=== PATIENT | male | born 1970 | race Caucasian/White ===

== ENCOUNTER 2019-12-06 09:22 | Outpatient (REF) | payer OTHER, SELFPAY | END 2019-12-06 09:23 | disposition home or self-care (01) | LOC: HO.LNP 09:22 | PROVIDERS: PCP Internal Medicine; Visit Provider Surgery | DX: R22.40 Localized swelling, mass and lump, unspecified lower limb (principal); L72.9 Follicular cyst of the skin and subcutaneous tissue, unspecified | CPT/HCPCS: 11402 ==

== ENCOUNTER 2019-12-06 16:11 | Outpatient (REF) | payer OTHER, SELFPAY | END 2019-12-06 16:12 | disposition home or self-care (01) | LOC: HO.LAB 16:11 | PROVIDERS: Visit Provider Surgery | DX: L72.9 Follicular cyst of the skin and subcutaneous tissue, unspecified (principal) | CPT/HCPCS: 88304 ==

== ENCOUNTER → 2019-12-14 14:29 | Outpatient (BNVA) | payer OTHER, SELFPAY | PROVIDERS: PCP Internal Medicine; Referring Provider Internal Medicine; Visit Provider Internal Medicine Cardiovascular Disease | DX: I25.10 Atherosclerotic heart disease of native coronary artery without angina pectoris (principal); I10 Essential (primary) hypertension; E78.2 Mixed hyperlipidemia; Z79.82 Long term (current) use of aspirin; Z79.899 Other long term (current) drug therapy | CPT/HCPCS: 93005 ==

== ENCOUNTER → 2019-12-20 09:43 | Outpatient (BNVA) | payer OTHER, SELFPAY | PROVIDERS: PCP Internal Medicine; Visit Provider Surgery | DX: Z76.89 Persons encountering health services in other specified circumstances (principal) ==

== ENCOUNTER 2020-02-07 08:58 | Outpatient (REF) | payer OTHER, SELFPAY ==
[2020-02-07 09:20] LABS: COVID-19 Test Negative (Negative)
== END 2020-02-07 08:59 | disposition home or self-care (01) ==
LOC: HO.EMPCOV 08:58
PROVIDERS: PCP Internal Medicine; Visit Provider Internal Medicine
DX: Z20.828 Contact with and (suspected) exposure to other viral communicable diseases (principal)
CPT/HCPCS: 87635; C9803

== ENCOUNTER 2020-02-29 13:16 | Outpatient (REF) | payer OTHER, SELFPAY ==
--- NOTE | 2020-02-29 13:22 | XR_ITS ---
EXAMINATION: XR HAND, RIGHT CLINICAL INFORMATION: Injury of right hand COMPARISON: None TECHNIQUE: PA, lateral, and oblique views of the right hand. FINDINGS: There is no evidence of acute fracture or dislocation of the right hand. No radiopaque foreign bodies identified. Joint spaces are maintained. Soft tissue prominence is seen involving the base of the thumb and palm. XR/XR hand RT min 3V IMPRESSION: No bony abnormality of the right hand identified. Prominent soft tissue swelling.
== END 2020-02-29 13:17 | disposition home or self-care (01) ==
LOC: HO.HMGCX 13:16
PROVIDERS: PCP Internal Medicine; Visit Provider Nurse Practitioner Family
DX: S69.90XA Unspecified injury of unspecified wrist, hand and finger(s), initial encounter (principal); X58.XXXA Exposure to other specified factors, initial encounter; Y93.9 Activity, unspecified; Y92.9 Unspecified place or not applicable; Y99.9 Unspecified external cause status
CPT/HCPCS: 73130

== ENCOUNTER → 2020-03-07 11:32 | Outpatient (BNVA) | payer BC, SELFPAY | PROVIDERS: PCP Internal Medicine; Visit Provider Surgery ==

== ENCOUNTER 2020-10-30 07:18 | Outpatient (REF) | payer OTHER, SELFPAY ==
[2020-10-30 08:17] LABS: MANUAL DIFF FLAG NO
[2020-10-30 08:34] LABS: Basophils Percent Auto 0.6 % (0-2); Eosinophils Absolute Auto 0.2 X10*3/uL (0.0-0.4); Eosinophils Percent Auto 2.9 % (0-4); Hematocrit 42.9 % (42-52); Hemoglobin 14.4 g/dl (14.0-18.0); Imm Gran Abs Auto 0.03 X10*3/uL (0.00-0.03); Imm Gran Pct Auto 0.6 % (0.0-0.4); Lymphocytes Absolute Auto 1.5 X10*3/uL (1.2-4.9); Lymphocytes Percent Auto 29.4 % (20-40); Mean Corpuscular HGB Conc 33.6 g/dl (31.0-36.0); Mean Corpuscular Volume 98.4 fL (80-98); Mean Platelet Volume 10.5 fL (9.4-12.4); Monocytes Absolute Auto 0.5 X10*3/uL (0.1-1.2); Monocytes Percent Auto 10.2 % (2-11); Neutrophils Absolute Auto 2.9 X10*3/uL (2.0-8.3); Neutrophils Percent Auto 56.3 % (45-73); Platelet Count 239 X10*3/uL (160-400); Red Blood Count 4.36 X10*6/uL (4.60-5.80); Red Cell Distribution Width 13.2 % (11.0-16.0); White Blood Count 5.2 X10*3/uL (4.8-10.8)
[2020-10-30 09:07] LABS: Estimated Average Glucose 114 mg/dL; Hemoglobin A1c % 5.6 %
[2020-10-30 09:29] LABS: Folate 9.8 ng/mL (> or = 4.0); Vitamin B12 233 pg/mL (200-900)
[2020-10-30 18:50] LABS: Alanine Aminotransferase 32 U/L (0-40); Albumin Level 4.7 g/dL (3.5-5.0); Alkaline Phosphatase 62 U/L (39-117); Anion Gap 12 (12-20); Aspartate Amino Transferase 32 U/L (5-37); Bilirubin Total 0.5 mg/dL (0.0-1.0); Blood Urea Nitrogen 11 mg/dL (9-16); Calcium 9.6 mg/dL (8.4-10.2); Carbon Dioxide 26 mmol/L (22-29); Chloride 109 mmol/L (96-108); Cholesterol 178 mg/dL; Estimated Glomerular Filt Rate > 60; Glucose Random 115 mg/dL (60-115); HDL Cholesterol 31 mg/dL; LDL Cholesterol Calculated 101 mg/dl; Potassium 4.4 mmol/L (3.3-5.1); Sodium 143 mmol/L (135-145); Total Protein 7.1 g/dL (6.5-8.0); Triglycerides 230 mg/dL; Uric Acid 3.3 mg/dL (3.4-7.0)
[2020-10-30 19:12] LABS: Free T4 (Free Thyroxine) 0.83 ng/dL (0.71-1.85); Prostate Specific Antigen Scr 1.82 ng/mL (<0.05-4.0); Thyroid Stimulating Hormone 2.04 uIU/mL (0.32-4.0)
== END 2020-10-30 07:19 | disposition home or self-care (01) ==
LOC: HO.LAB 07:18
PROVIDERS: PCP Internal Medicine; Visit Provider Internal Medicine
DX: I25.10 Atherosclerotic heart disease of native coronary artery without angina pectoris (principal); E78.00 Pure hypercholesterolemia, unspecified; R73.02 Impaired glucose tolerance (oral); E78.2 Mixed hyperlipidemia; Z12.5 Encounter for screening for malignant neoplasm of prostate
CPT/HCPCS: 36415; 80053; 80061; 82607; 82746; 83036; 84153; 84439; 84443; 84550; 85025

== ENCOUNTER → 2021-03-04 12:55 | Outpatient (BNVA) | payer OTHER, SELFPAY | PROVIDERS: PCP Internal Medicine; Referring Provider Internal Medicine; Visit Provider Nurse Practitioner Family ==

== ENCOUNTER 2021-03-21 09:41 | Outpatient (REF) | payer OTHER, SELFPAY ==
[2021-03-21 11:05] LABS: Alanine Aminotransferase 39 U/L (0-40); Albumin Level 4.6 g/dL (3.5-5.0); Alkaline Phosphatase 61 U/L (39-117); Anion Gap 13 (12-20); Aspartate Amino Transferase 41 U/L (5-37); Bilirubin Total 0.7 mg/dL (0.0-1.0); Blood Urea Nitrogen 14 mg/dL (9-16); Calcium 9.6 mg/dL (8.4-10.2); Carbon Dioxide 24 mmol/L (22-29); Chloride 108 mmol/L (96-108); Cholesterol 114 mg/dL; Estimated Glomerular Filt Rate > 60; Glucose Random 103 mg/dL (60-115); HDL Cholesterol 18 mg/dL; LDL Cholesterol Calculated 66 mg/dl; Potassium 4.5 mmol/L (3.3-5.1); Sodium 140 mmol/L (135-145); Total Protein 7.1 g/dL (6.5-8.0); Triglycerides 154 mg/dL
== END 2021-03-21 09:42 | disposition home or self-care (01) ==
LOC: HO.LAB 09:41
PROVIDERS: PCP Internal Medicine; Visit Provider Internal Medicine
DX: I25.10 Atherosclerotic heart disease of native coronary artery without angina pectoris (principal); E78.00 Pure hypercholesterolemia, unspecified
CPT/HCPCS: 36415; 80053; 80061

== ENCOUNTER → 2021-03-26 11:03 | Outpatient (BNVA) | payer OTHER, SELFPAY | PROVIDERS: PCP Internal Medicine; Referring Provider Internal Medicine; Visit Provider Internal Medicine Cardiovascular Disease | DX: I25.10 Atherosclerotic heart disease of native coronary artery without angina pectoris (principal); I10 Essential (primary) hypertension | CPT/HCPCS: 93005 ==

== ENCOUNTER 2021-04-04 07:57 | Day surgery (SDC) | payer OTHER, SELFPAY ==
[2021-03-31 11:14] VITALS: BMI 28.5
--- NOTE | 2021-04-03 10:02 | HO.ANESPROP2 ---
Documented by User: Jannette Morales NP 04/25/21 14:48 HPI - Anesthesia Eval Consult details Narrative: 50yo M for Colonoscopy Cardiac optimized [facility] Active Problems Active Problems: All Active Problems (Updated 03/26/21 @ 11:41 by Bill Gerardo MD) Generalized anxiety disorder (Acute) Colon cancer screening (Acute) Annual physical exam (Acute) Impaired glucose tolerance (Acute) Tobacco abuse (Acute) GERD (gastroesophageal reflux disease) (Acute) Overweight (BMI 25.0-29.9) (Acute) Epidermal inclusion cyst (Acute) Hand injury (Acute) CAD (coronary artery disease) (Acute) HTN (hypertension), benign (Acute) Hyperlipidemia (Acute) Past Medical History Medical History (Updated 04/18/21 @ 09:03 by Daniela Cardoza [facility]) Alcohol abuse Anxiety CAD (coronary artery disease) COVID-19 virus infection Epidermal inclusion cyst Erectile dysfunction GERD (gastroesophageal reflux disease) HTN (hypertension), benign Hyperlipidemia Impaired glucose tolerance Internal hemorrhoids without complication Overweight (BMI 25.0-29.9) Polysubstance abuse Tobacco abuse Tubular adenoma Vitamin B12 deficiency Vitamin D deficiency Family History Family History Mother Myocardial infarct Father Myocardial infarct Surgical History Surgical History History of adenoidectomy History of coronary artery stent placement History of nasal surgery History of removal of cyst Hx of colonoscopy Social History Social History Housing: House Alcohol intake: current Alcohol intake frequency: 0-2 drinks per day Patient Tobacco Use Status: Current everyday Tobacco user Tobacco use type: Cigarette Cigarettes Per Day: 10 Years Smoked: 30 e-Cigarette/Vaping Use: Never Used Second Hand Smoke Exposure: No service: No Current occupational status: employed Meds Allergies Allergy/AdvReac Type Severity Reaction Status Date / Time No Known Allergies [NKA] Allergy Unknown NOT Verified 04/18/21 08:00 APPLICABLE Home Medications Medication Instructions Recorded Confirmed Last Taken Type aspirin 81 mg tablet,delayed 81 mg PO DAILY 12/14/19 04/04/21 04/02/21 History release (Adult Low Dose Aspirin) Exam Exam Date and Time: April 03, 2021 1002 Height,Weight and Vital Signs: Height 5 ft 8 in Weight 85 kg Pertinent Lab Results Pertinent Lab Results: Laboratory Tests 10/30/20 03/21/21 07:45 09:50 WBC 5.2 Hgb 14.4 Hct 42.9 Plt Count 239 Sodium 140 Potassium 4.5 Chloride 108 Carbon Dioxide 24 BUN 14 Creatinine 0.87 Narrative Narrative: EKG 03/2021 normal sinus rhythm with normal EKG at 77 beats per minute Assessment and Plan Assessment Anesthesia Assessment: Chart Reviewed Documented by User: Yg Dalal MD 05/28/21 00:27 HPI - Anesthesia Eval Consult details Narrative: 50yo M for Colonoscopy STEMI 2008 , s/p stent placement . Cardiac optimized as per Cards [facility] Past Medical History Medical History (Updated 04/18/21 @ 09:03 by [facility] Alcohol abuse Anxiety CAD (coronary artery disease) COVID-19 virus infection Epidermal inclusion cyst Erectile dysfunction GERD (gastroesophageal reflux disease) HTN (hypertension), benign Hyperlipidemia Impaired glucose tolerance Internal hemorrhoids without complication Overweight (BMI 25.0-29.9) Polysubstance abuse Tobacco abuse Tubular adenoma Vitamin B12 deficiency Vitamin D deficiency Family History Family History Mother Myocardial infarct Father Myocardial infarct Family history of problems with anesthesia: No Surgical History Surgical History History of adenoidectomy History of coronary artery stent placement History of nasal surgery History of removal of cyst Hx of colonoscopy History of Problems with Anesthesia: No Social History Social History Housing: House Alcohol intake: current Alcohol intake frequency: 0-2 drinks per day Patient Tobacco Use Status: Current everyday Tobacco user Tobacco use type: Cigarette Cigarettes Per Day: 10 Years Smoked: 30 e-Cigarette/Vaping Use: Never Used Second Hand Smoke Exposure: No service: No Current occupational status: employed Meds Allergies Allergy/AdvReac Type Severity Reaction Status Date / Time No Known Allergies [NKA] Allergy Unknown NOT Verified 04/18/21 08:00 APPLICABLE Home Medications Medication Instructions Recorded Confirmed Last Taken Type aspirin 81 mg tablet,delayed 81 mg PO DAILY 12/14/19 04/04/21 04/02/21 History release (Adult Low Dose Aspirin) Exam Airway Loose/Missing/Broken Teeth: Yes (Caps , fillings ) Heart: rrr Lungs: bl breath sounds Assessment and Plan Assessment Anesthesia Assessment: Anesthesia Plan Discussed Final Anesthetic Review Family History of Problems with Anesthesia: No History of Problems with Anesthesia: No NPO: Yes ASA Class: III Final Preanesthetic Review: Meds/Allgs Chart Reviewed, Consent Obtained/Reviewed and Anes Risks/Benef Reviewed Patient Risk: High Procedure Risk: Intermediate Anesthetic Plan Anesthetic Plan: MAC: Disposition: Standard PACU
[2021-04-04 08:19] VITALS: BMI 28.5
[2021-04-04 08:28] VITALS: BP 152/94; PULSE 78; RESP 16; TEMP 37.1; O2SAT 96
[2021-04-04] MEDS: Lactated Ringers 1,000 ML 100 ML IVCONT (08:37)
--- NOTE | 2021-04-04 08:56 | MHC.SHP ---
Pre-Procedural Eval Section A Date of Service: 04/04/21 The patient is an INPATIENT: No The History & Physical has been completed within 30 days and I have reviewed it.: No Section B Chief Complaint: screening Relevant Family History (Specify if Yes): Yes Relevant Social History: Tobacco Use Present Medications: see Short Stay Collaborative assessment Medical History: Significant History (Alcohol abuse Anxiety CAD (coronary artery disease) COVID-19 virus infection Epidermal inclusion cyst Erectile dysfunction GERD (gastroesophageal reflux disease) HTN (hypertension), benign Hyperlipidemia Impaired glucose tolerance Overweight (BMI 25.0-29.9) Polysubstance abuse Tobacco abuse Vitamin ) History of Previous Operations: Relevant previous surgery/procedure and date(s) (History of adenoidectomy History of coronary artery stent placement History of nasal surgery History of removal of cyst) Allergies: Allergies Allergy/AdvReac Type Severity Reaction Status Date / Time No Known Allergies [NKA] Allergy Unknown NOT Verified 04/04/21 08:30 APPLICABLE Review of Systems Sugical H&P ROS: Negative: Constitution, Cardiovascular, Respiratory and Gastrointestinal Exam Surgical H&P Exam: Normal: Heart, Normal: Lungs, Normal: Extremities and Normal: Abdomen Plan Diagnosis/Plan: Unchanged I have reviewed the history and physical and performed a pertinent physical examination on my patient. No changes have occurred unless specified.
--- NOTE | 2021-04-04 08:58 | P.OP_ITS ---
Operative Note Operative Note Date of Service: 04/04/21 Narrative: Pre-op diagnosis: Colon cancer screening, FH of colon polyps (brother in his 40's) Post-op diagnosis:?other (Colon polyps, hemorrhoids) Procedure: COLONOSCOPY TILL CECUM WITH BIOPSIES AND SNARE POLYPECTOMY Consent: Indications for the procedure and potential complications of bleeding, perforation, reaction to medications and missed diagnosis were discussed with the patient and informed consent was obtained. Instrument: Olympus PCF H 190 L variable stiffness pediatric colonoscope Monitoring: Vital signs and clinical assessment, intermittent blood pressure monitoring, continuous EKG monitoring, Pulse oximetry and Carbon Dioxide monitoring were done throughout the procedure. Colon withdrawl time was 45 minutes. Procedure: The patient was placed in the left lateral decubitis position and pre-procedure medications were administered. After a digital rectal examination of the ano-rectum, the video colonoscope was inserted into the rectum and advanced through the colon to the cecum. The colonoscope was slowly withdrawn in a retrograde panoramic fashion and the colon mucosa was carefully examined including a retroflexed view of the rectum. Findings and interventions are described below. Procedure Difficulty:? Colon was long and tortuous and there was spasm and loop formation. Patient was placed in the supine position to intubate the cecum to snare the cecal polyp Findings: Terminal Ileum: Not evaluated Cecum:? A 2.5 to 3 cms polyp in the cecum behind a fold - polyp was difficult to snare due to excessive spasm. Polyp was removed piece meal. Ascending Colon:? Normal Transverse Colon:? An 8-9 mm sessile polyp removed with a hot snare. Descending Colon:? Normal Sigmoid Colon:? Two 8-10 mm sessile polyps removed with a hot snare. A 4-5 mm sessile polyp removed with a cold bx. Rectum:? Normal Ano-rectum:? Moderate internal hemorrhoids Colon preparation:? Good after some irrigation Impression and Post Procedure Diagnosis: Colonoscopy Findings: Fout medium sized and one large polyps removed Moderate hemorrhoids on retroflexed exam. Plan: Await pathology results Patient has an appointment on 04/18/21 in the GI Clinic with Daniela Cardoza FNP- BC. Repeat Colonoscopy interval based on path results - in 6 to 12 months to check polypectomy site in the cecum (adult colonoscopy for future colonoscopies) Above findings were reviewed with the patient and colon polyps handout was given in the discharge area Surgeon: Todd Phoenix MD Anesthesia:?MAC (Do Dawkins CRNA) Was an Global Logistics Manager used for this Procedure?:?No Global Logistics Manager:?Jessica Bryant Estimated blood loss (mL):?0 Pathology:?other ( A. cecal polyp? B. transverse colon polyp? C. sigmoid polyps (2)) Condition:?stable Disposition:?PACU
[2021-04-04 10:03] VITALS: BP 115/79; PULSE 65; RESP 16; TEMP 36.9; O2SAT 99
[2021-04-04 10:18] VITALS: BP 139/80; PULSE 67; RESP 18; TEMP 36.9; O2SAT 96
== END 2021-04-04 10:44 | disposition home or self-care (01) ==
PROVIDERS: PCP Internal Medicine; Visit Provider Internal Medicine Gastroenterology
PROC: 0DJD8ZZ Inspection of Lower Intestinal Tract, Via Natural or Artificial Opening Endoscopic (ICD-10-PCS; CPT 45378; principal; 2021-04-04 09:00)
DX: Z12.11 Encounter for screening for malignant neoplasm of colon (principal); D12.0 Benign neoplasm of cecum; D12.3 Benign neoplasm of transverse colon; K63.5 Polyp of colon; K64.8 Other hemorrhoids; I25.10 Atherosclerotic heart disease of native coronary artery without angina pectoris; I25.2 Old myocardial infarction; Z98.61 Coronary angioplasty status; I10 Essential (primary) hypertension; R73.02 Impaired glucose tolerance (oral); E78.5 Hyperlipidemia, unspecified; E55.9 Vitamin D deficiency, unspecified; K21.9 Gastro-esophageal reflux disease without esophagitis; F19.10 Other psychoactive substance abuse, uncomplicated; F10.10 Alcohol abuse, uncomplicated; F17.200 Nicotine dependence, unspecified, uncomplicated; Z79.82 Long term (current) use of aspirin; Z79.899 Other long term (current) drug therapy; Z86.16 Personal history of COVID-19
CPT/HCPCS: 45385; 45380; 88305; J1610

== ENCOUNTER → 2021-04-18 07:57 | Outpatient (BNVA) | payer OTHER, SELFPAY | PROVIDERS: PCP Internal Medicine; Referring Provider Internal Medicine; Visit Provider Nurse Practitioner Family ==

== ENCOUNTER 2022-02-04 05:55 | Emergency (ER) | payer OTHER, SELFPAY ==
--- NOTE | ~2022-02-04 | XR_ITS ---
EXAMINATION: XR CHEST CLINICAL INFORMATION: Chest wall pain. Cough COMPARISON: March 2017 TECHNIQUE: 2 views of the chest were obtained. FINDINGS: No significant abnormality is noted involving the heart, lungs, mediastinum, bony thorax or soft tissues. XR/XR chest 2V IMPRESSION: No acute disease.
[2022-02-04 06:12] VITALS: BP 125/86; PULSE 72; RESP 16; TEMP 36.7; O2SAT 98; BMI 28.1
--- NOTE | 2022-02-04 07:33 | ED.GENADULT ---
HPI - General Adult General Chief complaint: General Medical Stated complaint: ear pain headache sore throat rib pain Time Seen by Provider: 02/04/22 07:24 Source: patient Mode of arrival: ambulatory History of Present Illness HPI narrative: 51-year-old male with history of high blood pressure in the hyperlipidemia presents with complaints of bilateral ear pain as well as persistent cough, malaise/body aches, sore throat, fevers that started last Wednesday and ?have not really improved?. Patient denies any use of Q-tips his physician did start him on antibiotic ear drops and he states that they have not worked. Related Data Home Medications Medication Instructions Recorded Confirmed aspirin 81 mg tablet,delayed 81 mg PO DAILY 12/14/19 12/31/21 release (Adult Low Dose Aspirin) Previous Rx's Medication Instructions Recorded hydrocortisone 2.5 % topical cream 1 appl [place] BID-QID PRN hemorrhoids 04/18/21 with perineal applicator #30 grams (Proctosol HC) rosuvastatin 40 mg tablet 40 mg PO DAILY 90 days #90 tabs 05/05/21 fenofibrate nanocrystallized 145 145 mg PO DAILY #90 tabs 07/31/21 mg tablet ezetimibe 10 mg tablet 10 mg PO DAILY #90 tabs 08/05/21 bisacodyl 5 mg tablet,delayed 10 mg PO ONCE 1 day #2 tabs 10/31/21 release (Dulcolax (bisacodyl)) polyethylene glycol 3350 17 238 g PO ONCE #238 grams 10/31/21 gram/dose oral powder (Miralax) famotidine 40 mg tablet 40 mg PO BEDTIME #90 tabs 11/26/21 sildenafil 100 mg tablet 100 mg PO DAILY PRN sexual 11/26/21 activity 10 days #10 tabs alprazolam 0.25 mg tablet 0.25 mg PO DAILY PRN anxiety #14 12/31/21 tabs bupropion HCl (smoking deter) 150 150 mg PO BID #60 tabs 12/31/21 mg tablet,12 hr sustained-release(smoking deterrent) nebivolol 5 mg tablet 5 mg PO DAILY #90 tabs 01/14/22 rsjlojxr-kmtlsfidf-lxdpxelif 3.5 4 drp otic (ears) Q8H 10 days #10 01/27/22 mg-10,000 unit/mL-1 % ear mL drops,susp amoxicillin 875 mg-potassium 1 tab PO BID 10 days #20 tabs 02/04/22 clavulanate 125 mg tablet Allergies Allergy/AdvReac Type Severity Reaction Status Date / Time No Known Allergies [NKA] Allergy Unknown NOT Verified 12/31/21 12:37 APPLICABLE Review of Systems Review of Systems: Pertinent positives and negatives as stated in HPI 10 point review of systems is otherwise negative. PMFSH Past Medical History Source: nursing notes reviewed Medical History Alcohol abuse Anxiety CAD (coronary artery disease) Colon cancer screening COVID-19 virus infection Epidermal inclusion cyst Erectile dysfunction GERD (gastroesophageal reflux disease) Hand injury HTN (hypertension), benign Hyperlipidemia Impaired glucose tolerance Internal hemorrhoids without complication Overweight (BMI 25.0-29.9) Polysubstance abuse Tobacco abuse Tubular adenoma Vitamin B12 deficiency Vitamin D deficiency Surgical History History of adenoidectomy History of coronary artery stent placement History of nasal surgery History of removal of cyst Hx of colonoscopy Family History Family History Mother Myocardial infarct Father Myocardial infarct Social History Social History Housing: House Alcohol intake: current Alcohol intake frequency: 0-2 drinks per day Patient Tobacco Use Status: Current everyday Tobacco user Tobacco use type: Cigarette Cigarettes Per Day: 10 Years Smoked: 30 e-Cigarette/Vaping Use: Never Used Second Hand Smoke Exposure: No Advance Directives: No service: No Current occupational status: employed Cognitive needs: No Hearing needs: No Vision needs: Yes Physical Exam ED Vital Signs: Vital Signs - 24 hr 02/04/22 06:12 Temperature 98.1 F Pulse Rate 72 Respiratory Rate 16 Blood Pressure 125/86 Pulse Oximetry 98 Oxygen Delivery Method Room Air BMI result Body Mass Index 28.1 VITAL SIGNS: Reviewed. GENERAL: Well developed, well nourished, in no acute distress. HEAD: Normocephalic/atraumatic EYES: PERRLA, EOMI EARS: Ext canals with irregularity noted on the right, normal on the left, RIGHT: TMs appears erythematous and friable with mild bulging; LEFT: TM erythematous, bulging NOSE: Nares patent bilateral OROPHARYNX: no oral lesions noted, posterior pharynx clear but erythematous with noted tonsillar erythema NECK: Supple, + adenopathy LUNGS: Normal breath sounds. No adventitious sounds or accessory muscle use. SpO2<98> CARDIOVASCULAR: Regular rate and rhythm without noted murmurs, no JVD or lower extremity edema. ABDOMEN: Soft, non-tender, non-distended with bowel sounds. SKIN: Inspection of the skin reveals no rashes NEUROLOGIC: Alert and oriented x 4. Strength and sensation to light touch were grossly intact x 4. Medications Administered Discontinued Medications Generic Name Dose Route Start Last Admin Trade Name Freq PRN Reason Stop Dose Admin Acetaminophen 975 mg 02/04/22 07:32 02/04/22 08:44 Acetaminophen 325 Mg Tablet PO 02/04/22 07:33 975 mg ONCE ONE Administration Benzonatate 200 mg 02/04/22 07:32 02/04/22 08:43 Benzonatate 100 Mg Capsule PO 02/04/22 07:33 200 mg ONCE ONE Administration Ibuprofen 400 mg 02/04/22 07:32 02/04/22 08:44 Ibuprofen 400 Mg Tablet PO 02/04/22 07:33 400 mg ONCE ONE Administration Medical Decision Making Medical Decision Making MDM Narrative: 51-year-old male with history and clinical presentation most suggestive of viral illness, I reviewed the current antibiotic prescription that patient is been using for ear drops in feel that the ear infection may be viral in nature for the possibility strep although the tonsils do not appear to have exudates. Tylenol/ibuprofen/Tessalon/2V chest x-ray/SARS/Strep test Lab Data [facility] Lab Attestation statement: I reviewed the patient's lab results. No evidence of a viral infection. Labs: Lab Results 02/04/22 02/04/22 Range/Units 07:26 07:38 Influenza Type A (PCR) NEGATIVE (Negative) Influenza Type B (PCR) NEGATIVE (Negative) RSV RNA Qual (PCR) NEGATIVE (Negative) SARS-CoV-2 RNA (RT-PCR) NEGATIVE (Negative) S. pyogenes GrpA BRIEN Negative (Negative) Independent Interpretation I performed an independent interpretation of an: Plain X-Ray Interpretation: My interpretation of the chest x-ray is that there is no evidence of pneumothorax, infiltration, and no noted bony abnormalities. Radiology Impression Discussion of test interpretation with radiology: I have reviewed the radiologist's reading. Discharge Plan Discharge Clinical Impression: Acute otitis media Patient Disposition: Home, Self-Care Instructions: Ear Infection (ED) Additional Instructions: 1. Complete the entire course of oral antibiotics as prescribed. 2. Stop using the antibiotic drops that you have been putting in your ear. 3. Follow-up with your primary care provider in the next 1-2 days for re-evaluation. Return to the ER for worsening symptoms. Prescriptions: New amoxicillin-pot clavulanate 875-125 mg tablet 1 tab PO BID 10 Days Qty: 20 0RF No Action rosuvastatin 40 mg tablet 40 mg PO DAILY 90 Days Qty: 90 1RF fenofibrate nanocrystallized 145 mg tablet 145 mg PO DAILY Qty: 90 3RF ezetimibe 10 mg tablet 10 mg PO DAILY Qty: 90 3RF famotidine 40 mg tablet 40 mg PO BEDTIME Qty: 90 2RF sildenafil 100 mg tablet 100 mg PO DAILY PRN (Reason: sexual activity) 10 Days Qty: 10 4RF Rx Instructions: administer 30 minutes to 4 hours before activity nebivolol 5 mg tablet 5 mg PO DAILY Qty: 90 3RF ryqinlxv-ezojmwtqy-ST 3.5-10,000-1 mg/mL-unit/mL-% drops,suspension 4 drp otic (ears) Q8H 10 Days Qty: 10 0RF bupropion HCl (smoking deter) 150 mg tablet extended release 12 hr 150 mg PO BID Qty: 60 1RF alprazolam 0.25 mg tablet 0.25 mg PO DAILY PRN (Reason: anxiety) Qty: 14 0RF aspirin [Adult Low Dose Aspirin] 81 mg tablet,delayed release (DR/EC) 81 mg PO DAILY hydrocortisone [Proctosol HC] 2.5 % cream with perineal applicator 1 appl [place] BID-QID PRN (Reason: hemorrhoids) Qty: 30 2RF bisacodyl [Dulcolax (bisacodyl)] 5 mg tablet,delayed release (DR/EC) 10 mg PO ONCE 1 Days Qty: 2 0RF Rx Instructions: take 2 tabs at noon the day before your colonoscopy polyethylene glycol 3350 [Miralax] 17 gram/dose powder 238 g PO ONCE Qty: 238 0RF Rx Instructions: As directed by gastroenterology department at [facility] Referrals: Kaela Greene MD [Primary Care Provider] -
[2022-02-04 08:09] LABS: Strep A Nucleic Acid Negative (Negative)
[2022-02-04] MEDS: Benzonatate 100 MG CAPSULE 200 MG PO (08:43)
[2022-02-04] MEDS: Acetaminophen 325 MG TABLET 975 MG PO (08:44)
[2022-02-04] MEDS: Ibuprofen 400 MG TABLET PO (08:44)
[2022-02-04 08:53] LABS: Influenza A PCR NEGATIVE (Negative); Influenza B PCR NEGATIVE (Negative); Resp Syncy Virus RNA Qual PCR NEGATIVE (Negative); SARS COV2 PCR INHOUSE NEGATIVE (Negative)
== END 2022-02-04 11:37 | disposition home or self-care (01) ==
PROVIDERS: Emergency Provider Student in an Organized Health Care Education/Training Program; PCP Internal Medicine
DX: H66.93 Otitis media, unspecified, bilateral (principal); Z20.822 Contact with and (suspected) exposure to COVID-19; I10 Essential (primary) hypertension; E78.5 Hyperlipidemia, unspecified; F17.210 Nicotine dependence, cigarettes, uncomplicated
CPT/HCPCS: 0241U; 36415; 71046; 87651; 99283

== ENCOUNTER 2022-04-03 09:48 | Day surgery (SDC) | payer OTHER, SELFPAY ==
[2022-03-30 15:23] VITALS: BMI 28.1
[2022-03-30 15:28] VITALS: BMI 28.1
--- NOTE | 2022-04-03 10:16 | P.CONAN_ITS ---
HPI - Anesthesia Eval Consult details Narrative: for colonoscopy [facility] Active Problems Active Problems: All Active Problems (Updated 02/05/22 @ 00:02 by Background Daemon) Annual physical exam (Acute) Generalized anxiety disorder (Acute) Alcohol abuse (Acute) Tubular adenoma (Acute) Impaired glucose tolerance (Acute) Tobacco abuse (Acute) GERD (gastroesophageal reflux disease) (Acute) Overweight (BMI 25.0-29.9) (Acute) CAD (coronary artery disease) (Acute) HTN (hypertension), benign (Acute) Hyperlipidemia (Acute) Past Medical History Medical History (Updated 02/05/22 @ 00:02 by Background Daemon) Alcohol abuse Anxiety CAD (coronary artery disease) Colon cancer screening COVID-19 virus infection Epidermal inclusion cyst Erectile dysfunction GERD (gastroesophageal reflux disease) Hand injury HTN (hypertension), benign Hyperlipidemia Impaired glucose tolerance Internal hemorrhoids without complication Overweight (BMI 25.0-29.9) Polysubstance abuse Tobacco abuse Tubular adenoma Vitamin B12 deficiency Vitamin D deficiency Narrative: Cath and stent 2008. currently very active, no sx. No chest pain or dyspnea. Family History Family History Mother Myocardial infarct Father Myocardial infarct Family history of problems with anesthesia: No Surgical History Surgical History (Updated 03/30/22 @ 15:19 by Yaquelin Riley RN) History of adenoidectomy History of coronary artery stent placement History of nasal surgery History of removal of cyst Hx of colonoscopy History of Problems with Anesthesia: No Social History Social History Housing: House Are you a primary childcare provider to a significant other at home: No Do you presently have visiting nurse or other home services: No Alcohol intake: current Alcohol intake frequency: 0-2 drinks per day Patient Tobacco Use Status: Current everyday Tobacco user Tobacco use type: Cigarette Cigarettes Per Day: 10 Years Smoked: 31 e-Cigarette/Vaping Use: Never Used Second Hand Smoke Exposure: No Are you DNR?: No Advance Directives: No Advance Directives Information Provided: Yes (brochure mailed) Advance Directives on File: No Recently lost weight without trying: No Eating poorly because of decreased appetite: No Nutrition Risks: No Nutritional Risk Poor oral hygiene: No service: No Current occupational status: employed Cognitive needs: No Hearing needs: No Vision needs: Yes Meds Allergies Allergy/AdvReac Type Severity Reaction Status Date / Time No Known Allergies Allergy Verified 03/30/22 15:27 Home Medications Medication Instructions Recorded Confirmed Last Taken Type aspirin 81 mg tablet,delayed 81 mg PO DAILY 12/14/19 03/30/22 04/02/21 History release (Adult Low Dose Aspirin) Exam Exam Date and Time: April 03, 2022 1016 Height,Weight and Vital Signs: Height 5 ft 8 in Weight 83.915 kg Airway Mallampati Class: I TM Dist: >3cm Neck ROM: Full Loose/Missing/Broken Teeth: No Heart: ok Lungs: ok Assessment and Plan Assessment Anesthesia Assessment: Anesthesia Plan Discussed and Chart Reviewed Final Anesthetic Review Family History of Problems with Anesthesia: No History of Problems with Anesthesia: No NPO: Yes ASA Class: III Final Preanesthetic Review: No Changes in Pt Med Stat, Meds/Allgs Chart Reviewed, Consent Obtained/Reviewed and Anes Risks/Benef Reviewed Patient Risk: Intermediate Procedure Risk: Low Anesthetic Plan Anesthetic Plan: MAC: and Agree w/ Assess. and Plan Disposition: Standard PACU
[2022-04-03 10:45] VITALS: PULSE 68; RESP 15; TEMP 36.8; O2SAT 97
[2022-04-03] MEDS: Lactated Ringers 1,000 ML 100 ML IVCONT (10:51)
--- NOTE | 2022-04-03 11:36 | MHC.SHP ---
Pre-Procedural Eval Section A Date of Service: 04/03/22 The patient is an INPATIENT: No The History & Physical has been completed within 30 days and I have reviewed it.: No Section B Chief Complaint: Benign neoplasm, unspecified site Details of Present Illness: screening, follow-up of colon polyps Relevant Family History (Specify if Yes): No Relevant Social History: Tobacco Use Present Medications: see Short Stay Collaborative assessment Medical History: Significant History (Alcohol abuse Anxiety CAD (coronary artery disease) COVID-19 virus infection Epidermal inclusion cyst Erectile dysfunction GERD (gastroesophageal reflux disease) HTN (hypertension), benign Hyperlipidemia Impaired glucose tolerance Internal hemorrhoids without complication Overweight (BMI 25.0-29.9) ) History of Previous Operations: Relevant previous surgery/procedure and date(s) (History of adenoidectomy History of coronary artery stent placement History of nasal surgery History of removal of cyst Hx of colonoscopy) Allergies: Allergies Allergy/AdvReac Type Severity Reaction Status Date / Time No Known Allergies Allergy Verified 03/30/22 15:27 Review of Systems Sugical H&P ROS: Negative: Constitution, Cardiovascular, Respiratory and Gastrointestinal Exam Surgical H&P Exam: Normal: Heart, Normal: Lungs, Normal: Extremities and Normal: Abdomen Plan Diagnosis/Plan: Unchanged I have reviewed the history and physical and performed a pertinent physical examination on my patient. No changes have occurred unless specified. Time Spent With Patient Time: Total time managing care of this patient today ____ minutes.
--- NOTE | 2022-04-03 12:44 | P.BOP_ITS ---
Brief Operative Note Date of Service: 04/03/22 Pre-op diagnosis: colon cancer screening, follow-up of colon polyps Post-op diagnosis: other ( colon polyps, diverticulosis, hemorrhoids) Procedure: COLONOSCOPY TO CECUM WITH BIOPSIES, SNARE POLYPECTOMY AND CHROMOENDOSCOPY Surgeon: Todd Phoenix MD Anesthesia: MAC Was an Patient Relations Specialist used for this Procedure?: No Estimated blood loss (mL): 0 Pathology: other (a. cecal polyp, B. cecum, C. SC polyps) Condition: stable Disposition: PACU
--- NOTE | 2022-04-03 12:45 | W.PM.OPN ---
Operative Note Operative Note Date of Service: 04/03/22 Narrative: Pre-op diagnosis: colon cancer screening, follow-up of colon polyps Post-op diagnosis:?other ( colon polyps, diverticulosis, hemorrhoids) Surgeon: Todd Phoenix MD Anesthesia:?MAC COLONOSCOPY TILL CECUM WITH BIOPSIES, SNARE POLYPECTOMY AND CHROMOENDOSCOPY Consent: Indications for the procedure and potential complications of bleeding, perforation, reaction to medications and missed diagnosis were discussed with the patient and informed consent was obtained. Instrument: Olympus CF H 190 L variable stiffness adult colonoscope Monitoring: Vital signs and clinical assessment, intermittent blood pressure monitoring, continuous EKG monitoring, Pulse oximetry and Carbon Dioxide monitoring were done throughout the procedure. Colon withdrawl time was 32 minutes. Procedure: The patient was placed in the left lateral decubitis position and pre-procedure medications were administered. After a digital rectal examination of the ano-rectum, the video colonoscope was inserted into the rectum and advanced through the colon to the cecum. The colonoscope was slowly withdrawn in a retrograde panoramic fashion and the colon mucosa was carefully examined including a retroflexed view of the rectum. Findings and interventions are described below. Procedure Difficulty: Without difficulty Findings: Terminal Ileum: Not evaluated Cecum: Cecum examined using chromoendoscopy with methylene blue. A 9 to 10 mm sessile polyp (likely residual at past polypectomy site) removed with a hot snare No additional adenomatous tissue visualized - random biopsies were obtained Ascending Colon: Scattered diverticulosis throughout the colon Transverse Colon: Scattered diverticulosis throughout the colon Descending Colon: Scattered diverticulosis throughout the colon Sigmoid Colon: Two 8 to 10 mm sessile polyps removed with a hot snare and a cold bx. Moderate diverticulosis Rectum: Normal Ano-rectum: Moderate internal hemorrhoids Colon preparation: Good after copious irrigation Impression and Post Procedure Diagnosis: Colonoscopy Findings: Three medium sized polyps removed Moderate diverticulosis seen in the entire colon Moderate hemorrhoids on retroflexed exam. Plan: Await pathology results Patient has an appointment on 04/17/22 in the GI Clinic with Hayley Rosales NP. Repeat Colonoscopy interval based on path results - in 3 years if polyps are adenomatous and due to a hx of adenomatous colon polyps. Above findings were reviewed with the patient and colon polyps and diverticulosis handouts were given in the discharge area BIOPSIES SHOWED: A.? Cecum, polypectomy:? Colonic mucosa with thermal artifact and features of sessile serrated polyp. B.? Cecum, biopsy:? Colonic mucosa with prominent lymphoid aggregate; otherwise within normal limits. C.? Colon, sigmoid, polypectomies (2):? Hyperplastic mucosal polyps.
[2022-04-03 12:49] VITALS: BP 108/66; PULSE 68; RESP 18; TEMP 37.6; O2SAT 96
[2022-04-03 13:04] VITALS: BP 119/74; PULSE 65; RESP 16; TEMP 36.5; O2SAT 97
== END 2022-04-03 13:30 | disposition home or self-care (01) ==
PROVIDERS: PCP Internal Medicine; Visit Provider Internal Medicine Gastroenterology
PROC: 0DJD8ZZ Inspection of Lower Intestinal Tract, Via Natural or Artificial Opening Endoscopic (ICD-10-PCS; CPT 45378; principal; 2022-04-03 11:10)
DX: Z12.11 Encounter for screening for malignant neoplasm of colon (principal); Z86.010 Personal history of colon polyps; D12.0 Benign neoplasm of cecum; K63.5 Polyp of colon; K57.30 Diverticulosis of large intestine without perforation or abscess without bleeding; K64.8 Other hemorrhoids; K21.9 Gastro-esophageal reflux disease without esophagitis; I25.10 Atherosclerotic heart disease of native coronary artery without angina pectoris; I10 Essential (primary) hypertension; E78.5 Hyperlipidemia, unspecified; Z98.61 Coronary angioplasty status; R73.02 Impaired glucose tolerance (oral); F17.210 Nicotine dependence, cigarettes, uncomplicated; E66.3 Overweight; Z68.28 Body mass index [BMI] 28.0-28.9, adult; Z79.82 Long term (current) use of aspirin; Z79.899 Other long term (current) drug therapy; F10.10 Alcohol abuse, uncomplicated; Z86.16 Personal history of COVID-19
CPT/HCPCS: 45385; 45380; 88305; J3010; Q9968

== ENCOUNTER → 2022-04-17 08:03 | Outpatient (BNVA) | payer OTHER, SELFPAY | PROVIDERS: PCP Internal Medicine; Visit Provider Nurse Practitioner Family | DX: Z13.89 Encounter for screening for other disorder (principal) ==

== ENCOUNTER 2022-05-01 07:10 | Outpatient (REF) | payer OTHER, SELFPAY ==
[2022-05-01 07:20] LABS: MANUAL DIFF FLAG NO
[2022-05-01 07:44] LABS: Basophils Absolute Auto 0.1 X10*3/uL (0.0-0.2); Basophils Percent Auto 0.7 % (0-2); Eosinophils Absolute Auto 0.1 X10*3/uL (0.0-0.4); Eosinophils Percent Auto 1.8 % (0-4); Hematocrit 46.3 % (42.0-52.0); Hemoglobin 15.9 g/dl (14.0-18.0); Imm Gran Abs Auto 0.03 X10*3/uL (0.00-0.03); Imm Gran Pct Auto 0.4 % (0.0-0.4); Lymphocytes Absolute Auto 1.8 X10*3/uL (1.2-4.9); Lymphocytes Percent Auto 24.6 % (20-40); Mean Corpuscular HGB Conc 34.3 g/dl (31.0-36.0); Mean Corpuscular Hemoglobin 32.9 pg (27.0-33.0); Mean Corpuscular Volume 95.9 fL (80.0-98.0); Mean Platelet Volume 10.7 fL (9.4-12.4); Monocytes Absolute Auto 0.8 X10*3/uL (0.1-1.2); Monocytes Percent Auto 10.7 % (2-11); Neutrophils Absolute Auto 4.6 x10*3/uL (2.0-8.3); Neutrophils Percent Auto 61.8 % (45-73); Platelet Count 302 X10*3/uL (160-400); Red Blood Count 4.83 X10*6/uL (4.60-5.80); Red Cell Distribution Width 12.6 % (11.0-16.0); White Blood Count 7.4 X10*3/uL (4.8-10.8)
[2022-05-01 07:57] LABS: Estimated Average Glucose 120 mg/dL; Hemoglobin A1c % 5.8 %
[2022-05-01 08:22] LABS: Alanine Aminotransferase 27 U/L (0-40); Albumin Level 4.5 g/dL (3.5-5.0); Alkaline Phosphatase 65 U/L (39-117); Anion Gap 15 (12-20); Aspartate Amino Transferase 30 U/L (5-37); Bilirubin Total 0.4 mg/dL (0.0-1.0); Blood Urea Nitrogen 9 mg/dL (9-16); Calcium 9.4 mg/dL (8.4-10.2); Carbon Dioxide 22 mmol/L (22-29); Chloride 109 mmol/L (96-108); Cholesterol 124 mg/dL; Estimated Glomerular Filt Rate > 60; Glucose Random 115 mg/dL (60-115); HDL Cholesterol 25 mg/dL; LDL Cholesterol Calculated 70 mg/dl; Potassium 4.8 mmol/L (3.3-5.1); Sodium 141 mmol/L (135-145); Total Protein 6.9 g/dL (6.5-8.0); Triglycerides 147 mg/dL
[2022-05-01 08:43] LABS: Free T4 (Free Thyroxine) 0.75 ng/dL (0.71-1.85); Prostate Specific Antigen Scr 1.37 ng/mL (<0.05-4.0); Thyroid Stimulating Hormone 1.93 uIU/mL (0.32-4.0); Vitamin B12 296 pg/mL (200-900)
[2022-05-01 08:59] LABS: HBS Num1 1.14 mIU/mL (0-7.99); HBc Num1 0.06 S/CO (0.00-0.79); HBsAGNum1 0.25 S/CO (0.00-0.99); Hepatitis B Core Antibody Nonreactive (Nonreactive); Hepatitis B Surface Antigen Negative (Negative); ~HepC Num1 0.14 S/CO (0.00-0.79); ~Hepatitis B Surface Antibody NONREACTIVE (Nonreactive); ~Hepatitis C Antibody Nonreactive (Nonreactive)
== END 2022-05-01 07:11 | disposition home or self-care (01) ==
LOC: HO.LAB 07:10
PROVIDERS: PCP Internal Medicine; Visit Provider Internal Medicine
DX: Z12.5 Encounter for screening for malignant neoplasm of prostate (principal); R73.02 Impaired glucose tolerance (oral); K21.9 Gastro-esophageal reflux disease without esophagitis; R79.89 Other specified abnormal findings of blood chemistry; E78.00 Pure hypercholesterolemia, unspecified; I25.10 Atherosclerotic heart disease of native coronary artery without angina pectoris
CPT/HCPCS: 36415; 80053; 80061; 82607; 82746; 83036; 84153; 84439; 84443; 85025; 86704; 86706; 86803; 87340; 93005

== ENCOUNTER 2022-11-12 13:32 | Outpatient (REF) | payer OTHER, SELFPAY ==
--- NOTE | ~2022-11-12 | XR_ITS ---
EXAMINATION: XR HAND, RIGHT CLINICAL INFORMATION: Pain. COMPARISON: None available. TECHNIQUE: PA, lateral, and oblique views of the right hand. FINDINGS: The bones and soft tissues are normal. No fracture or dislocation. A tiny accessory ossification center is noted adjacent to the ulnar styloid. Alignment is anatomic. Joint spaces are maintained. No erosions or soft tissue calcifications. XR/XR hand RT min 3V IMPRESSION: Normal right hand.
== END 2022-11-12 13:33 | disposition home or self-care (01) ==
LOC: HO.HOSX 13:32
PROVIDERS: PCP Internal Medicine; Visit Provider Physician Assistant
DX: S60.221A Contusion of right hand, initial encounter (principal)
CPT/HCPCS: 73130

== ENCOUNTER 2022-11-12 13:32 | Outpatient (AMB) | payer OTHER, SELFPAY ==
--- NOTE | 2022-11-12 13:34 | A.OFFVIS_ITS ---
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 Patient reports he noticed that bump about 2 months ago. Denies numbness and tingling. 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 He reports the bump is on the dorsal aspect of the right hand. He states he noticed the bump about 2 months ago, in 08/2022. He denies numbness or tingling. PFSH Medical History Alcohol abuse Anxiety CAD (coronary artery disease) Colon cancer screening COVID-19 virus infection Epidermal inclusion cyst Erectile dysfunction GERD (gastroesophageal reflux disease) Hand injury HTN (hypertension), benign Hyperlipidemia Impaired glucose tolerance Internal hemorrhoids without complication Overweight (BMI 25.0-29.9) Polysubstance abuse Tobacco abuse Tubular adenoma Vitamin B12 deficiency Vitamin D deficiency Surgical History History of adenoidectomy History of coronary artery stent placement History of nasal surgery History of removal of cyst Hx of colonoscopy Family History Mother Myocardial infarct Father Myocardial infarct Social History Housing: House Are you a primary wound care center consultant to a significant other at home: No Do you presently have visiting nurse or other home services: No Alcohol intake: current Alcohol intake frequency: a few times a week Patient Tobacco Use Status: Current everyday Tobacco user Tobacco use type: Cigarette Cigarette Packs Per Day: 0.5 Cigarettes Per Day: 10.0 Years Smoked: 25 +/- e-Cigarette/Vaping Use: Never Used Second Hand Smoke Exposure: No service: No Current occupational status: employed Cognitive needs: No Hearing needs: No Vision needs: Yes Review of Systems Const All systems reviewed & are unremarkable except as noted in HPI and below Physical Exam Vital Signs: BMI result Body Mass Index 28.3 Const General: cooperative and no acute distress Orientation/consciousness: patient oriented x3 Resp Effort & Inspection: normal respiratory effort and able to speak in complete sentences Cardio Peripheral pulses: Peripheral pulses 2+ throughout Skin General skin exam: no rashes or lesions noted Neuro General: patient oriented x3 Extrem Other: Right hand: Normal to inspection. No ecchymosis or erythema. Edema over the middle finger MCP. Slight tenderness to palpation. Able to perform full finger flexion, extension, abduction, adduction, finger cross, okay sign, and thumbs up without deficit. Able to make a closed fist. Sensation intact. Capillary refill is brisk. Radial pulse intact. Assessment & Plan Assessment & Plan (1) Contusion of right hand: Code(s): S60.221A - Contusion of right hand, initial encounter Qualifiers: Encounter type: initial encounter Qualified Code(s): S60.221A - Contusion of right hand, initial encounter Plan Mr. Kelly is a 52-year-old right hand dominant male who presents in the office today, as a new patient, for an evaluation of a right hand bump. He reports the bump is on the dorsal aspect of the right hand. He states he noticed the bump about 2 months ago, in 08/2022. He denies numbness or tingling. He does have edema over the area. He confirms taking ibuprofen, with no relief. Therefore, I sent a prescription of diclofenac 75 mg PO BID PRN to the pharmacy. I offered the patient occupational therapy. He has declined at this time. Follow up will be PRN, or sooner if needed. X-rays of the right hand obtained while in the office today and reviewed by me, Ally Sy PA-C, revealed no obvious fractures or dislocation of the right middle finger. Orders: Orders XR hand RT min 3V Today M79.643 - Pain in unspecified hand Medications: New diclofenac sodium 75 mg PO BID PRN 60 tabs 0RF pain Patient Instructions: Scribed for Ally Sy PA-C by Jessica Samaniego medical laboratory technologist, on 11/12/2022 at 1:34 pm, EST. Coding Level of Care Code New Pt Level 4 (57969) Diagnoses Contusion of right hand, initial encounter S60.267V Encounter type: initial encounter
[2022-11-12 13:45] VITALS: BMI 28.3
== END 2022-11-12 14:16 | disposition home or self-care (01) ==
LOC: HO.HOS 13:32
PROVIDERS: PCP Internal Medicine; Visit Provider Physician Assistant
DX: S60.221A Contusion of right hand, initial encounter (principal)
CPT/HCPCS: 99204

== ENCOUNTER 2022-11-30 07:11 | Outpatient (REF) | payer OTHER, SELFPAY ==
[2022-11-30 07:28] LABS: MANUAL DIFF FLAG NO
[2022-11-30 07:34] LABS: Basophils Absolute Auto 0.1 X10*3/uL (0.0-0.2); Basophils Percent Auto 0.6 % (0-2); Eosinophils Absolute Auto 0.3 X10*3/uL (0.0-0.4); Eosinophils Percent Auto 2.9 % (0-4); Hematocrit 42.6 % (42.0-52.0); Hemoglobin 14.7 g/dl (14.0-18.0); Imm Gran Abs Auto 0.06 X10*3/uL (0.00-0.03); Imm Gran Pct Auto 0.6 % (0.0-0.4); Lymphocytes Percent Auto 21.2 % (20-40); Mean Corpuscular HGB Conc 34.5 g/dl (31.0-36.0); Mean Corpuscular Hemoglobin 32.2 pg (27.0-33.0); Mean Corpuscular Volume 93.4 fL (80.0-98.0); Mean Platelet Volume 10.2 fL (9.4-12.4); Monocytes Absolute Auto 0.7 X10*3/uL (0.1-1.2); Monocytes Percent Auto 7.5 % (2-11); Neutrophils Absolute Auto 6.3 x10*3/uL (2.0-8.3); Neutrophils Percent Auto 67.2 % (45-73); Platelet Count 329 X10*3/uL (160-400); Red Blood Count 4.56 X10*6/uL (4.60-5.80); Red Cell Distribution Width 12.5 % (11.0-16.0); White Blood Count 9.4 X10*3/uL (4.8-10.8)
[2022-11-30 07:40] LABS: Estimated Average Glucose 114 mg/dL; Hemoglobin A1c % 5.6 % (<6.0)
[2022-11-30 08:13] LABS: Alanine Aminotransferase 21 U/L (0-40); Albumin Level 4.4 g/dL (3.5-5.0); Alkaline Phosphatase 49 U/L (39-117); Anion Gap 13 (12-20); Aspartate Amino Transferase 17 U/L (5-37); Bilirubin Total 0.4 mg/dL (0.0-1.0); Blood Urea Nitrogen 15 mg/dL (9-16); Calcium 9.2 mg/dL (8.4-10.2); Carbon Dioxide 21 mmol/L (22-29); Chloride 111 mmol/L (96-108); Cholesterol 97 mg/dL (<200); Estimated Glomerular Filt Rate > 60; Glucose Random 114 mg/dL (60-115); HDL Cholesterol 28 mg/dL (>40); LDL Cholesterol Calculated 56 mg/dL (<100); Potassium 4.5 mmol/L (3.3-5.1); Sodium 140 mmol/L (135-145); Total Protein 6.7 g/dL (6.5-8.0); Triglycerides 69 mg/dL (<150)
[2022-11-30 08:29] LABS: Free T4 (Free Thyroxine) 0.78 ng/dL (0.71-1.85); Thyroid Stimulating Hormone 1.55 uIU/mL (0.32-4.0)
[2022-11-30 08:44] LABS: Folate 10.7 ng/mL (> or = 4.0); Vitamin B12 401 pg/mL (200-900)
== END 2022-11-30 07:12 | disposition home or self-care (01) ==
LOC: HO.LAB 07:11
PROVIDERS: PCP Internal Medicine; Visit Provider Internal Medicine
DX: Z12.5 Encounter for screening for malignant neoplasm of prostate (principal); I25.10 Atherosclerotic heart disease of native coronary artery without angina pectoris; R73.02 Impaired glucose tolerance (oral); E78.00 Pure hypercholesterolemia, unspecified
CPT/HCPCS: 36415; 80053; 80061; 82607; 82746; 83036; 83735; 84153; 84439; 84443; 85025

== ENCOUNTER 2022-11-30 15:28 | Outpatient (AMB) | payer OTHER, SELFPAY ==
[2022-11-30 15:29] VITALS: BP 120/84; PULSE 76; O2SAT 97; BMI 28.1
--- NOTE | 2022-11-30 15:29 | A.OFFPC_ITS ---
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 Allergies No Known Allergies Allergy (Verified 11/30/22 15:31) Medication List - Last Reconciled 11/30/22 by Kaela Greene MD alprazolam 0.25 mg PO DAILY PRN aspirin (Adult Low Dose Aspirin) 81 mg PO DAILY diclofenac sodium 75 mg PO BID PRN ezetimibe 10 mg PO DAILY famotidine 40 mg PO BEDTIME fenofibrate nanocrystallized 145 mg PO DAILY hydrocortisone 2.5% (Proctosol HC) 1 appl PA BID-QID PRN nebivolol 2.5 mg PO DAILY rclsmqdm-vjnbyrbma-CY 3.5-10,000-1 mg/mL-unit/mL-% 4 drps otic (ears) Q8H 10 days rosuvastatin 40 mg PO DAILY sildenafil 100 mg PO DAILY PRN 10 days Tobacco use date assessed: 11/30/22 Dental Screening Dental Screen Date: 11/30/22 Did you have a dental visit in the last 12 months?: Yes Did you have a dental problem in the last 6 months where you did not have access to dental care?: No Was dental information given to patient?: Patient has dentist HPI pt requesting an office visit HPI Details 52-year-old overweight male smoker with GERD impaired glucose tolerance coronary artery disease hypertension hypercholesterolemia generalized anxiety disorder history of alcohol abuse coming in for follow-up. Last seen in December 2021 for physical exam patient had colonoscopy done March 2022 with tubular adenoma. Review of the notes patient was seen by Orthopedics in November for right hand lump/mass x-ray the was neg. Patient follows up with cardiology April 2022 yearly doing well continue with aspirin blood pressure is under control. Colonoscopy done March 2022 advised repeat in 3 years. stopped alcohol 09/21/2022 stopped nevibilol due the BP going SBP < 100. discussed the importance of having beta blockers on board CAD. PAtient brought in nugenix - concern on potassium PFSH Medical History Alcohol abuse Anxiety CAD (coronary artery disease) Colon cancer screening COVID-19 virus infection Epidermal inclusion cyst Erectile dysfunction GERD (gastroesophageal reflux disease) Hand injury HTN (hypertension), benign Hyperlipidemia Impaired glucose tolerance Internal hemorrhoids without complication Overweight (BMI 25.0-29.9) Polysubstance abuse Tobacco abuse Tubular adenoma Vitamin B12 deficiency Vitamin D deficiency Surgical History History of adenoidectomy History of coronary artery stent placement History of nasal surgery History of removal of cyst Hx of colonoscopy Family History Mother Myocardial infarct Father Myocardial infarct Social History Housing: House Are you a primary neonatal critical care nurse to a significant other at home: No Do you presently have visiting nurse or other home services: No Alcohol intake: current Alcohol intake frequency: a few times a week Patient Tobacco Use Status: Current everyday Tobacco user Tobacco use type: Cigarette Cigarette Packs Per Day: 0.5 Cigarettes Per Day: 10.0 Years Smoked: 25 +/- e-Cigarette/Vaping Use: Never Used Second Hand Smoke Exposure: No service: No Current occupational status: employed Cognitive needs: No Hearing needs: No Vision needs: Yes Questionnaire PHQ-9 Over the last 2 weeks, how often have you been bothered by any of the following problems? 1. Little interest or pleasure in doing things: not at all 2. Feeling down, depressed, or hopeless: not at all 3. Trouble falling or staying asleep, or sleeping too much: not at all 4. Feeling tired or having little energy: not at all 5. Poor appetite or overeating: not at all 6. Feeling bad about yourself - or that you are a failure or have let yourself or your family down: not at all 7. Trouble concentrating on things, such as reading the newspaper or watching television: not at all 8. Moving or speaking so slowly that other people could have noticed. Or the opposite - being so fidgety or restless that you have been moving around a lot more than usual: not at all 9. Thoughts that you would be better off or of hurting yourself in some way: not at all Total score: 0 Depression Screening Interpretation: Negative Depression Screening Done: Yes Source: Developed by Drs. Kareem Nguyen, Lucas Crews and colleagues, with an educational ryan from [employer] Thrive Questionnaire Date Thrive assessed: 11/30/22 I am a: Patient What is your living situation today?: I have a steady place to live Within the past 12 months, did the food you bought not last and you didn't have the money to get more?: Never true Within the past 12 months, did you worry whether your food would run out before you got money to buy more?: Never true Do you have trouble paying for medicines?: No Do you have trouble getting transportation to medical appointments?: No Do you have trouble paying your heating and electricity bill?: No Do you have trouble taking care of your child, family member or friend?: No Do you have trouble with day-to-day activities such as bathing, preparing meals, shopping, managing finances, etc.?: No Are you currently unemployed and looking for a job?: No Are you interested in more education?: No AUDIT C Alcohol Use Questionnaire (AUDIT-C) 1. How often do you have a drink containing alcohol?: Monthly or less 2. How many drinks containing alcohol do you have on a typical day when you are drinking?: 1 or 2 3. How often do you have six or more drinks on one occasion?: Never Total Score: 1 VANESSA-7 AMB Questionnaire VANESSA-7 Date VANESSA - 7 assessed: 11/30/22 Feeling nervous, anxious, or on edge: 0 = Not at all Not being able to stop or control worryin = Not at all Worrying too much about different things: 0 = Not at all Trouble relaxin = Not at all Being so restless that it is hard to sit still: 0 = Not at all Becoming easily annoyed or irritable: 0 = Not at all Feeling afraid as if something awful might happen: 0 = Not at all Total VANESSA-7 score (0-4 normal; 5-9 mild; 10-14 moderate; 15-21 severe): 0 Source: Developed by Drs. Kareem Nguyen, Lucas Crews and colleagues, with an educational ryan from [employer] Physical exam (Primary Care) Vital Signs: Last Vital Signs Pulse 76 11/30/22 15:29 BP 120/84 11/30/22 15:29 Pulse Ox 97 11/30/22 15:29 Oxygen Delivery Method Room Air 11/30/22 15:29 BMI result Body Mass Index 28.1 Tobacco/Smoking Status: Tobacco use Status Tobacco use date assessed 11/30/22 11/30/22 15:32 Patient Tobacco Use Status Current everyday Tobacco 11/30/22 15:29 Tobacco use type Cigarette 11/30/22 15:29 e-Cigarette/Vaping Use Never Used 11/30/22 15:29 PHQ-9: PHQ-9 Score PHQ-9: Total score 0 11/30/22 15:49 Depression Screening Interpretation: Negative Thrive Assessment: Date of Thrive Assessment Date Thrive assessed 11/30/22 11/30/22 15:32 Const General: alert; No acute distress Eyes Conjunctivae: conjunctivae normal Resp Auscultation: clear to auscultation bilaterally Cardio Rate: regular rate Rhythm: regular rhythm GI Inspection: Yes normal to inspection Extrem General: Yes normal to inspection and No edema Office Procedures Flu Questionnaire Does the patient have a severe egg allergy?: No Does the patient have severe life threatening allergies?: No Does the patient have a fever or illness today?: No Has the patient ever had Guillain-Nelson Syndrome?: No Has the patient ever had any past reaction to a flu shot?: No Immunizations flu vacc [id number] 6mos up(PF) 60 mcg(15 mcgx4)/0.5 mL IM syringe Performing Provider: Kaela Greene MD Performing Location: [facility] Administered by: CASSIE Hoff on 11/30/22 15:44 Dose Route Admin Location Dispensed Lot Number Expiration Date NDC Veterinary Poultry Inspector 0.5 mL IM Left Deltoid 0.5 mL [id number] 08/15/23 [id number] [employer] VIS Given Date VIS Provided VIS Publication Date 11/30/22 Single Vaccine 20 Eligibility Eligibility Date Funding Source Not [facility] Eligible 11/30/22 Private Assessment and Plan Assessment & Plan (1) CAD (coronary artery disease): Comment: [place] [address] [place] Gerardo stent placement LAD Code(s): I25.10 - Atherosclerotic heart disease of [place] coronary artery without angina pectoris Qualifiers: Coronary Disease-Associated Artery/Lesion type: [place] artery [place] vs. transplanted heart: [place] heart Associated angina: without angina Qualified Code(s): I25.10 - Atherosclerotic heart disease of [place] coronary artery without angina pectoris Plan: Control the cholesterol, weight, blood pressure continue with aspirin patient follows up cardiology echocardiogram request (2) HTN (hypertension), benign: Code(s): I10 - Essential (primary) hypertension Plan: Continue with blood pressure medication. Decrease salt intake and exercise continue with Nevibololl 5 mg once a day pressure went down too low patient advised to decrease the nevibolol to 2.5 mg QD (3) Hyperlipidemia: Code(s): E78.5 - Hyperlipidemia, unspecified Qualifiers: Hyperlipidemia type: mixed hyperlipidemia Qualified Code(s): E78.2 - Mixed hyperlipidemia Plan: Avoid fried foods, chicken skin, eggs, butter margarine, pastries and meat. Be it pork or beef they have a lot of cholesterol LDL goal of less than 70 and triglyceride of less than 150. November 2022 last blood work patient on rosuvastatin 40 mg once a day fenofibrate 145 mg once a day and Zetia 10 mg once a day (4) Overweight (BMI 25.0-29.9): Code(s): E66.3 - Overweight Plan: Diet and exercise (5) GERD (gastroesophageal reflux disease): Code(s): K21.9 - Gastro-esophageal reflux disease without esophagitis Qualifiers: Esophagitis presence: without esophagitis Qualified Code(s): K21.9 - Gastro-esophageal reflux disease without esophagitis Plan: Avoid the foods that causes that usually spicy foods, tomato products, juices, coffee, soda and foods that your sensitive to. After eating do not lie down, allow 3-4 hours before in lie down. And keep the head of bed above 30 degrees to avoid the acid from going up. (6) Tobacco abuse: Code(s): Z72.0 - Tobacco use Plan: Patient strongly advised to stop smoking (7) Impaired glucose tolerance: Code(s): R73.02 - Impaired glucose tolerance (oral) Plan: Decrease the amount of carbohydrate intake, pasta, bread, rice and potatoes are all sugar and that is aside from all the sweet stuff, remember that fruits are good but they are Sweet also. (8) Generalized anxiety disorder: Code(s): F41.1 - Generalized anxiety disorder Plan: Continue with the medication as needed (9) Contusion of right hand: Code(s): S60.221A - Contusion of right hand, initial encounter Qualifiers: Encounter type: initial encounter Qualified Code(s): S60.221A - Contusion of right hand, initial encounter Plan: Patient has seen Ortho x-ray requested negative results. Patient also has a trigger finger and discussed about the problem and treatment. Also on physical exam looks like a tendon cyst on the met the carpal R hand Orders: Orders Influenza [id number] Immunization Today Z23 - Encounter for immunization Medications: Changed From nebivolol 5 mg PO DAILY 90 tabs 3RF To nebivolol 2.5 mg PO DAILY 90 tabs 3RF Coding Level of Care Code Est Pt Level 4 (89835) Diagnoses Coronary artery disease involving [place] coronary artery of [place] heart without angina pectoris I25.10 Coronary Disease-Associated Artery/Lesion type: [place] artery [place] vs. transplanted heart: [place] heart Associated angina: without angina HTN (hypertension), benign I10 Mixed hyperlipidemia E78.2 Hyperlipidemia type: mixed hyperlipidemia Overweight (BMI 25.0-29.9) E66.3 Gastroesophageal reflux disease without esophagitis K21.9 Esophagitis presence: without esophagitis Tobacco abuse Z72.0 Impaired glucose tolerance R73.02 Generalized anxiety disorder F41.1 Contusion of right hand, initial encounter S60.221A Encounter type: initial encounter
== END 2022-11-30 16:12 | disposition home or self-care (01) ==
PROVIDERS: PCP Internal Medicine; Visit Provider Internal Medicine
DX: Z23 Encounter for immunization (principal)
CPT/HCPCS: 90471; 90686; 99214

== ENCOUNTER → 2023-03-04 12:45 | Outpatient (REF) | payer OTHER, SELFPAY ==
--- NOTE | 2023-03-04 12:51 | CA_ITS ---
Transthoracic Echocardiogram Patient (Last, First, Middle): Randy Kelly, Gender: Male Date of : 1970 Age: 52 Procedure Date: 03/04/2023 Procedure Type: Transthoracic Echocardiogram Location: OP Height: 172.72 cm Weight: 78.02 kg BSA: 1.92 m2 Heart Rate: bpm BP: 117 / 74 mmHg Qa Specialist: TITUS Referring MD: Bill Gerardo MD Symptoms: I25.10 - Atherosclerotic heart disease of [place] coronary artery without... Study Quality: Adequate ECG Rhythm: Sinus Conclusions: - The left ventricular systolic function is normal. The calculated ejection fraction is 61% by biplane method. - No obvious valvular pathology seen on this study. Findings Left Ventricle Normal left ventricular cavity size. There is normal left ventricular wall thickness. The left ventricular systolic function is normal. The calculated ejection fraction is 61% by biplane method. There is no evidence of regional wall motion abnormalities. Diastolic function is normal for age. LV peak GLS -20.4%. Right Ventricle Mildly increased right ventricular cavity size. There is normal right ventricular systolic function. Atria Mild biatrial enlargement. Aortic Valve There is a normal trileaflet aortic valve. There is mild calcification of the aortic valve. There is no aortic valve stenosis. There is no aortic valve regurgitation. Mitral Valve The mitral valve appears normal. There is no mitral valve regurgitation. There is no mitral valve stenosis. Pulmonic Valve The pulmonic valve is likely normal. Tricuspid Valve Normal tricuspid valve structure. There is trace tricuspid valve regurgitation. There is no evidence of pulmonary hypertension. Great Vessels The asc aorta and aortic arch are normal in size. Small plaque is seen in the sino tubular ridge. Venous The inferior vena cava is normal in size and collapses greater than 50% with inspiration. Pericardium/Pleural There is no evidence of pericardial effusion. Prior Study Comparison No significant change compared to prior study dated: 05/31/2012. Recommendations, Care & Conclusions No obvious valvular pathology seen on this study. Measurements 2D Linear Measurements IVSd: 0.79 0.6-0.9/0.6-1.0 cm LVIDd: 5.23 3.9-5.3/4.2-5.9 cm LVIDd Index: 2.72 2.4-3.2/2.2-3.1 cm/m2 LVIDs: 3.38 2.0-3.6 cm LVPWd: 0.92 0.7-1.1 cm LA Diam: 3.20 2.7-3.8/3.0-4.0 cm LAIDs Index: 1.67 1.5-2.3 cm/m2 LV Mass: 198.55 67-162/88-224 g LV Mass Index: 103.41 43-95/49-115 g/m2 LVOT Diam: 2.10 3.0+(-)1.3 cm 2D Systolic Function EF 4C: 62.80 >55% EF 2C: 58.50 >55% EF BiP: 60.70 >55% Mitral Valve MV Pk E: 0.80 MV PK A: 0.72 MV Decel Time: 208.00 E/A: 1.10 E'Lateral: 11.10 E'Medial: 7.40 E/E' Med: 10.80 E/E' Lat: 7.20 PHT: 61.00 MVA PHT: 3.61 Decel Miner: 3.86 Aortic Valve AoV Pk Bernard: 1.76 AoV Mn Bernard: 1.13 AoV VTI: 0.40 AoV Pk Grad: 12.00 Aov Mn Grad: 6.00 BAUDILIO Cont.VTI: 2.36 LVOT LVOT Pk Bernard: 1.25 LVOT Mn Bernard: 0.77 LVOT VTI: 0.28 LVOT Pk Grad: 6.00 LVOT Mn Grad: 3.00 LVOT Diam: 2.10 LVOT Area: 3.46 Diastolic Function MV Pk E: 0.80 MV Pk A: 0.72 E/A: 1.10 E'Medial: 7.40 E/E' Med: 10.80 E' Laterial: 11.10 E/E' Lat: 7.20 Right Ventricle TAPSE (mm): 27.80 TVS' Bernard: 17.30 Tricuspid Valve TR Pk Bernard: 2.51 TR Pk Grad: 25.00 RA Press: 3.00 RVSP: 28.00 Great Vessels Aorta Sinus of Valsalva: 3.62 2.0-3.[address] Ridge: 2.55 1.7-3.4 cm Ao Asc: 3.50 2.1-3.4 cm Ao Arch: 2.80 Updated in Other Vendor System with Status of Final Suhail Amezquita MD electronically signed on 03/06/2023 1:24:07 PM with status of Final
== END ==
LOC: HO.CARD 12:45
PROVIDERS: PCP Internal Medicine; Visit Provider Internal Medicine Cardiovascular Disease
DX: I25.10 Atherosclerotic heart disease of native coronary artery without angina pectoris (principal); I10 Essential (primary) hypertension
CPT/HCPCS: 93306; 93356

== ENCOUNTER → 2023-03-04 12:51 | Outpatient (BNV) | payer OTHER, SELFPAY | PROVIDERS: PCP Internal Medicine; Visit Provider Internal Medicine | DX: I25.10 Atherosclerotic heart disease of native coronary artery without angina pectoris (principal) | CPT/HCPCS: 93306 ==

== ENCOUNTER 2023-07-05 12:52 | Outpatient (AMB) | payer OTHER, SELFPAY ==
[2023-07-05 12:55] VITALS: BP 120/80; PULSE 67; BMI 28.2
--- NOTE | 2023-07-05 12:55 | MHC.OFFVIS ---
Vital Signs 07/05/23 12:55 Height 5 ft 8 in Weight 185 lb 3.013 oz BMI 28.2 BP 120/80 Blood Pressure Location Lt brachial Position Sitting Pulse 67 Intake Visit Reasons: overdue fu Intake Note: Follow-up overdue follow-up with ekg feeling good [facility] Classifier Tender Required: No Allergies No Known Allergies Allergy (Verified 11/30/22 15:31) Medication List - Last Reconciled 07/05/23 by Bill Gerardo MD alprazolam 0.25 mg PO DAILY PRN aspirin (Adult Low Dose Aspirin) 81 mg PO DAILY diclofenac sodium 75 mg PO BID PRN ezetimibe 10 mg PO DAILY famotidine 40 mg PO BEDTIME fenofibrate nanocrystallized 145 mg PO DAILY hydrocortisone 2.5% (Proctosol HC) 1 appl [place] BID-QID PRN nebivolol 2.5 mg PO DAILY ghrfjvhj-vsfhzplag-DE 3.5-10,000-1 mg/mL-unit/mL-% 4 drps otic (ears) Q8H 10 days rosuvastatin 40 mg PO DAILY 90 days sildenafil 100 mg PO DAILY PRN 10 days HPI Comments Details: Vance comes for follow-up. He has been doing very well from cardiac perspective. Remains extremely active and has no exertional symptoms. Unfortunately continues to smoke. Denies drinking. His lipids are well optimized on current therapy. No exertional chest pain. No shortness of breath, orthopnea, PND. No palpitations, lightheadedness. PFSH Medical History Internal hemorrhoids without complication Tubular adenoma Colon cancer screening Impaired glucose tolerance COVID-19 virus infection Polysubstance abuse Erectile dysfunction Anxiety Tobacco abuse Alcohol abuse GERD (gastroesophageal reflux disease) Vitamin D deficiency Vitamin B12 deficiency Overweight (BMI 25.0-29.9) Epidermal inclusion cyst Hand injury CAD (coronary artery disease) Hyperlipidemia HTN (hypertension), benign Surgical History Hx of colonoscopy History of coronary artery stent placement History of removal of cyst History of adenoidectomy History of nasal surgery Family History Mother Myocardial infarct Father Myocardial infarct Social History Housing: House Are you a primary pet care associate to a significant other at home: No Do you presently have visiting nurse or other home services: No Alcohol intake: current Alcohol intake frequency: a few times a week Patient Tobacco Use Status: Current everyday Tobacco user Tobacco use type: Cigarette Cigarette Packs Per Day: 0.5 Cigarettes Per Day: 10.0 Years Smoked: 25 +/- e-Cigarette/Vaping Use: Never Used Second Hand Smoke Exposure: No service: No Current occupational status: employed Cognitive needs: No Hearing needs: No Vision needs: Yes Review of Systems Const Denies chills, Denies fatigue, Denies fever(s), Denies frequent falls, Denies weakness, Denies weight gain and Denies weight loss ENT Denies dizziness Card Denies chest pain, Denies leg edema, Denies lightheadedness, Denies palpitations, Denies dyspnea, Denies dyspnea on exertion, Denies orthopnea and Denies other (loss of consciousness) Resp Denies cough, Denies dyspnea and Denies dyspnea on exertion GI Denies hematochezia and Denies change in stool character Musc Denies abnormal gait, Denies muscle weakness, Denies numbness, Denies radiating pain into limb and Denies tingling Neuro Denies abnormal gait, Denies dizziness, Denies frequent falls, Denies numbness, Denies tingling and Denies weakness Endo Denies fatigue and Denies palpitations Physical Exam Vital Signs: Last Vital Signs Pulse 67 07/05/23 12:55 BP 120/80 07/05/23 12:55 BMI result Body Mass Index 28.2 Const General: cooperative, healthy appearing, comfortable, no acute distress, well developed, alert and awake Nutritional Appearance: overweight Orientation/consciousness: patient oriented x3 Limitations: no limitations HEENT Head: Yes normal to inspection, Yes normocephalic and Yes atraumatic Eyes General: appearance normal, both eyes and all related structures Neck Neck: Yes normal visual inspection, Yes trachea midline and Yes no JVD Carotids: other ( No carotid bruit) Chest Chest palpation & inspection: normal inspection of the chest Resp Effort & Inspection: normal respiratory effort Auscultation: clear to auscultation bilaterally Cardio Jugular venous distension: no JVD Palpation: normal PMI Rate: regular rate Rhythm: regular rhythm Heart sounds: S1 normal heart sound present, S2 normal heart sound present and Other heart sounds present ( soft S4) Peripheral pulses: Peripheral pulses 2+ throughout GI Inspection: Yes normal to inspection Auscultation: normal bowel sounds Skin General skin exam: no rashes or lesions noted, elasticity normal and turgor normal Neuro General: patient oriented x3 and no focal motor deficits Extrem General: Yes no clubbing, cyanosis or edema Psych Appearance: grossly normal Mental Status: mental status grossly normal Office Procedures EKG Details: EKG shows normal sinus rhythm with normal EKG at 67 beats per minute [id number], Complete Assessment & Plan Assessment & Plan (1) CAD (coronary artery disease): Comment: [place] [address] Dr. Gerardo stent placement LAD Code(s): I25.10 - Atherosclerotic heart disease of [place] coronary artery without angina pectoris Category: Medical Qualifiers: Coronary Disease-Associated Artery/Lesion type: [place] artery [place] vs. transplanted heart: [place] heart Associated angina: without angina Qualified Code(s): I25.10 - Atherosclerotic heart disease of [place] coronary artery without angina pectoris Plan: CAD with acute anterior wall SD in 2008 with LAD stent placement probably related to cocaine use. Doing well since then and has done extremely well with extremely good functional capacity. Importance of good medical therapy was discussed. Continue low-dose aspirin therapy for life. Continue current statin as well as ezetimibe therapy along with fenofibrate with well optimized LDL as well as triglycerides. Smoking cessation was advised. We discussed various strategies. He said he did not do very well with nicotine patches and is willing to try Chantix although afraid of side effects. We discussed to take Chantix at 0.5 mg only in the morning and see how he tolerates them. (2) HTN (hypertension), benign: Code(s): I10 - Essential (primary) hypertension Category: Medical Plan: Hypertension which is currently well optimized advised to continue current therapy with nebivolol. Importance of good blood pressure control was discussed. Target goal blood pressure less than 130/85. Advised to monitor blood pressure at home maintain a log. Low-salt diet was discussed advised to maintain activity level as tolerated. Will follow up in the clinic in 1 year's time, sooner p.r.n.. Thank you for allowing me to partake in his care Medications: New varenicline (Chantix Starting Month Box) PO PER PKG DIR 53 ea 0RF Coding Level of Care Code Est Pt Level 4 (70115) Diagnoses Coronary artery disease involving [place] coronary artery of [place] heart without angina pectoris I25.10 Coronary Disease-Associated Artery/Lesion type: [place] artery [place] vs. transplanted heart: [place] heart Associated angina: without angina HTN (hypertension), benign I10 CPT Codes EKG - CPT: [id number], Complete ([id number])
== END 2023-07-05 13:18 | disposition home or self-care (01) ==
PROVIDERS: PCP Internal Medicine; Visit Provider Internal Medicine Cardiovascular Disease
DX: I25.10 Atherosclerotic heart disease of native coronary artery without angina pectoris (principal); I10 Essential (primary) hypertension
CPT/HCPCS: 93010; 99214

== ENCOUNTER → 2023-07-05 12:52 | Outpatient (BNVA) | payer OTHER, SELFPAY | PROVIDERS: PCP Internal Medicine; Visit Provider Internal Medicine Cardiovascular Disease | DX: I25.10 Atherosclerotic heart disease of native coronary artery without angina pectoris (principal); I10 Essential (primary) hypertension; I25.2 Old myocardial infarction; Z79.82 Long term (current) use of aspirin; Z79.899 Other long term (current) drug therapy | CPT/HCPCS: 93005 ==

== ENCOUNTER 2023-10-22 10:57 | Outpatient (AMB) | payer OTHER, SELFPAY ==
--- NOTE | 2023-10-22 11:02 | MHC.PC.OV ---
Vital Signs 10/22/23 11:03 Height 5 ft 8 in Weight 192 lb BMI 29.2 BP 136/80 Blood Pressure Location Lt brachial Position Sitting Pulse 72 Pulse Source Pulse Oximeter Pulse Oximetry (%) 96 Oxygen Delivery Method Room Air Intake Visit Reasons: annual exam Intake Note: Patient is here today for a physical. Vice President Industrial Relations Required: No Surface Ship Usw Supervisor: Not Required per policy Accompanied by: Self / Same As Patient Allergies No Known Allergies Allergy (Verified 10/22/23 11:03) Medication List - Last Reconciled 10/22/23 by Kaela Greene MD alprazolam 0.25 mg PO DAILY PRN aspirin (Adult Low Dose Aspirin) 81 mg PO DAILY ezetimibe 10 mg PO DAILY famotidine 40 mg PO BEDTIME fenofibrate nanocrystallized 145 mg PO DAILY hydrocortisone 2.5% (Proctosol HC) 1 appl [place] BID-QID PRN nebivolol 2.5 mg PO DAILY lvhwdgrm-wcgexmeqt-QM 3.5-10,000-1 mg/mL-unit/mL-% 4 drps otic (ears) Q8H 10 days rosuvastatin 40 mg PO DAILY 90 days sildenafil 100 mg PO DAILY PRN 10 days varenicline (Chantix Starting Month Box) PO PER PKG DIR Tobacco use date assessed: 10/22/23 Dental Screening Dental Screen Date: 10/22/23 Did you have a dental visit in the last 12 months?: Yes Did you have a dental problem in the last 6 months where you did not have access to dental care?: No Was dental information given to patient?: Patient has dentist HPI annual exam HPI Details 53-year-old overweight male(7 lb weight gain) smoker with coronary artery disease 2008(cocaine use) hypertension hypercholesterolemia GERD generalized anxiety disorder coming in for physical exam last seen in 12/04/2022. Patient is up-to-date with colonoscopy March 2022. Review of the notes has seen Cardiology in June 2023 continuing with aspirin statins. Strongly advised to stop smoking! Echocardiogram done February 2023The left ventricular systolic function is normal. The calculated ejection fraction is 61% by biplane method. - No obvious valvular pathology seen on this study. Noted blood work done in 10/04/2022 showing macrocytosis with no anemia elevated blood sugar to 132 elevated calcium at 11 creatinine of 1.16. Subsequently had blood work in 12/04/2022 [facility] Medical History Internal hemorrhoids without complication Tubular adenoma Colon cancer screening Impaired glucose tolerance COVID-19 virus infection Polysubstance abuse Erectile dysfunction Anxiety Tobacco abuse Alcohol abuse GERD (gastroesophageal reflux disease) Vitamin D deficiency Vitamin B12 deficiency Overweight (BMI 25.0-29.9) Epidermal inclusion cyst Hand injury CAD (coronary artery disease) Hyperlipidemia HTN (hypertension), benign Surgical History Hx of colonoscopy History of coronary artery stent placement History of removal of cyst History of adenoidectomy History of nasal surgery Family History Mother Myocardial infarct Father Myocardial infarct Social History (Updated 10/22/23 @ 11:20 by Kaela Greene MD) Housing: House Are you a primary manager critical care unit to a significant other at home: No Do you presently have visiting nurse or other home services: No Alcohol intake: former Comment: stopped 09/22/2022!! Patient Tobacco Use Status: Current everyday Tobacco user Tobacco use type: Cigarette Cigarette Packs Per Day: 0.5 Cigarettes Per Day: 5 Years Smoked: 25 +/- e-Cigarette/Vaping Use: Never Used Second Hand Smoke Exposure: Yes service: No Current occupational status: employed Cognitive needs: No Hearing needs: No Vision needs: Yes Questionnaire PHQ-9 Over the last 2 weeks, how often have you been bothered by any of the following problems? 1. Little interest or pleasure in doing things: not at all 2. Feeling down, depressed, or hopeless: not at all 3. Trouble falling or staying asleep, or sleeping too much: not at all 4. Feeling tired or having little energy: not at all 5. Poor appetite or overeating: not at all 6. Feeling bad about yourself - or that you are a failure or have let yourself or your family down: not at all 7. Trouble concentrating on things, such as reading the newspaper or watching television: not at all 8. Moving or speaking so slowly that other people could have noticed. Or the opposite - being so fidgety or restless that you have been moving around a lot more than usual: not at all 9. Thoughts that you would be better off or of hurting yourself in some way: not at all Total score: 0 Depression Screening Interpretation: Negative Depression Screening Done: Yes Source: Developed by Drs. Kareem Nguyen, Wen Torres, Lucas You and colleagues, with an educational ryan from [employer]. Thrive Questionnaire Date Thrive assessed: 10/22/23 I am a: Patient What is your living situation today?: I have a steady place to live Within the past 12 months, did the food you bought not last and you didn't have the money to get more?: Never true Within the past 12 months, did you worry whether your food would run out before you got money to buy more?: Never true Do you have trouble paying for medicines?: No Do you have trouble getting transportation to medical appointments?: No Do you have trouble paying your heating and electricity bill?: No Do you have trouble taking care of your child, family member or friend?: No Do you have trouble with day-to-day activities such as bathing, preparing meals, shopping, managing finances, etc.?: No Are you currently unemployed and looking for a job?: No Are you interested in more education?: No Please select the resources that you would like help with: None Currently or been in a relationship where the following occur: No concerns reported THRIVE Score: 0 AUDIT C Alcohol Use Questionnaire (AUDIT-C) 1. How often do you have a drink containing alcohol?: Never Total Score: 0 VANESSA-7 AMB Questionnaire VANESSA-7 Date VANESSA - 7 assessed: 10/22/23 Feeling nervous, anxious, or on edge: 1 = Several days Not being able to stop or control worryin = Not at all Worrying too much about different things: 0 = Not at all Trouble relaxin = Not at all Being so restless that it is hard to sit still: 0 = Not at all Becoming easily annoyed or irritable: 0 = Not at all Feeling afraid as if something awful might happen: 0 = Not at all Total VANESSA-7 score (0-4 normal; 5-9 mild; 10-14 moderate; 15-21 severe): 1 Source: Developed by Wen Sawyer Kurt Kroenke and colleagues, with an educational ryan from [employer]. Review of Systems Const Denies poor appetite and Denies weakness Eyes Denies no additional complaints ENT Reports Normal hearing present, Denies dizziness, Denies nasal congestion, Denies tinnitus and Denies sore throat Card Denies chest pain, Denies syncope, Denies rapid heart rate and Denies dyspnea Resp Denies cough and Denies dyspnea GI Denies change in stool character, Reports constipation, Denies diarrhea, Denies nausea and Denies vomiting Denies dysuria and Denies urinary frequency Neuro Reports Normal hearing present, Denies confusion, Denies dizziness, Denies syncope and Denies weakness Psych Denies confusion Physical exam (Primary Care) Vital Signs: Last Vital Signs Pulse 72 10/22/23 11:03 BP 136/80 10/22/23 11:03 Pulse Ox 96 10/22/23 11:03 Oxygen Delivery Method Room Air 10/22/23 11:03 BMI result Body Mass Index 29.2 Tobacco/Smoking Status: Tobacco use Status Tobacco use date assessed 10/22/23 10/22/23 11:09 Patient Tobacco Use Status Current everyday Tobacco 10/22/23 11:09 Tobacco use type Cigarette 10/22/23 11:09 e-Cigarette/Vaping Use Never Used 10/22/23 11:09 PHQ-9: PHQ-9 Score PHQ-9: Total score 0 10/22/23 11:09 Depression Screening Interpretation: Negative Thrive Assessment: Date of Thrive Assessment Date Thrive assessed 10/22/23 10/22/23 11:09 Currently or been in a relationship where the following occur: No concerns reported Const General: No confusion Orientation/consciousness: No confusion HENMT Head: Yes normocephalic Ears: external ears normal and TM's normal bilaterally Face and sinus: Yes normal facial exam Mouth: moist mucous membranes Throat: Yes tonsils normal Eyes Conjunctivae: conjunctivae normal Pupils: Equal, round and reactive pupils present and Pupil accommodation reflex normal Direct Ophthalmoscopy: normal light reflex Neck Neck: No lymphadenopathy Thyroid: Thyroid normal Chest Chest palpation & inspection: normal inspection of the chest Resp Effort & Inspection: normal respiratory effort and no audible wheezes Auscultation: clear to auscultation bilaterally, no crackles, no wheezes and lung sounds not diminished Cardio Rate: regular rate Rhythm: regular rhythm Peripheral pulses: radial pulses present and dorsalis pedis present GI Palpation (GI): no masses Auscultation: normal bowel sounds and normoactive bowel sounds Rectal Exam - Male: Yes deferred Skin General skin exam: no rashes or lesions noted Rashes: no rashes Neuro General: No confusion Cranial nerves: Yes Equal, round and reactive pupils present and Yes Normal hearing present Cognition (Neuro): normal cognition Gait exam (Neuro): Normal gait present Motor exam (neuro): 5/5 motor strength present throughout Deep tendon reflexes (DTR's): Right brachioradialis reflex intensity grade: 2+, Left brachioradialis reflex intensity grade: 2+, Right patellar reflex intensity grade: 2+ and Left patellar reflex intensity grade: 2+ Extrem General: No edema Assessment and Plan Assessment & Plan (1) Annual physical exam: Code(s): Z00.00 - Encounter for general adult medical examination without abnormal findings Plan: Patient is advised to eat healthy, keep well hydrated, keep active and have adequate sleep. (2) Tobacco abuse: Code(s): Z72.0 - Tobacco use Plan: Patient is strongly advised to stop smoking! (3) CAD (coronary artery disease): Comment: [place] [address] Dr. Gerardo stent placement LAD Code(s): I25.10 - Atherosclerotic heart disease of [place] coronary artery without angina pectoris Qualifiers: Coronary Disease-Associated Artery/Lesion type: [place] artery [place] vs. transplanted heart: [place] heart Associated angina: without angina Qualified Code(s): I25.10 - Atherosclerotic heart disease of [place] coronary artery without angina pectoris Plan: Control the cholesterol, weight, blood pressure, advised to stop smoking continue with baby aspirin once a day (4) HTN (hypertension), benign: Code(s): I10 - Essential (primary) hypertension Plan: Continue with blood pressure medication. Decrease salt intake and exercise on nebivolol 2.5 mg once a day (5) Hyperlipidemia: Code(s): E78.5 - Hyperlipidemia, unspecified Qualifiers: Hyperlipidemia type: mixed hyperlipidemia Qualified Code(s): E78.2 - Mixed hyperlipidemia Plan: Avoid fried foods, chicken skin, eggs, butter margarine, pastries and meat. Be it pork or beef they have a lot of cholesterol on rosuvastatin 40 mg once a day , Zetia and fenofibrate LDL goal of less than 70 and triglyceride of less than 150. (6) Impaired glucose tolerance: Code(s): R73.02 - Impaired glucose tolerance (oral) Plan: Decrease the amount of carbohydrate intake, pasta, bread, rice and potatoes are all sugar and that is aside from all the sweet stuff, remember that fruits are good but they are Sweet also. Request for blood work (7) Generalized anxiety disorder: Code(s): F41.1 - Generalized anxiety disorder (8) Inguinal hernia of left side without obstruction or gangrene: Code(s): K40.90 - Unilateral inguinal hernia, without obstruction or gangrene, not specified as recurrent Plan: referral to surgeon Orders: Orders Complete Blood Count Auto Diff Today I25.10 - Atherosclerotic heart disease of [place] coronary artery without angina pectoris Free T4 (Free Thyroxine) Today I25.10 - Atherosclerotic heart disease of [place] coronary artery without angina pectoris Lipid Panel Today E78.00 - Pure hypercholesterolemia, unspecified, I25.10 - Atherosclerotic heart disease of [place] coronary artery without angina pectoris Prostate Specific Antigen Scr Today R73.02 - Impaired glucose tolerance (oral) Comprehensive Met. Panel Today R73.02 - Impaired glucose tolerance (oral) Varicella IgG Antibody Today Z00.00 - Encounter for general adult medical examination without abnormal findings, Z02.0 - Encounter for examination for admission to educational institution Thyroid Stimulating Hormone Today I25.10 - Atherosclerotic heart disease of [place] coronary artery without angina pectoris Vitamin B12 and Folate Today R73.02 - Impaired glucose tolerance (oral) Hemoglobin A1c Today R73.02 - Impaired glucose tolerance (oral) Referrals General Surgery Referral K40.90 - Unilateral inguinal hernia, without obstruction or gangrene, not specified as recurrent Medications: Refilled alprazolam 0.25 mg PO DAILY PRN 14 tabs 0RF anxiety F41.1 - Generalized anxiety disorder alprazolam 0.25 mg PO DAILY PRN 14 tabs 0RF anxiety F41.1 - Generalized anxiety disorder Coding Level of Care Code Est Pt Prev Care 40-64y(25703) Diagnoses Annual physical exam Z00.00 Tobacco abuse Z72.0 Coronary artery disease involving [place] coronary artery of [place] heart without angina pectoris I25.10 Coronary Disease-Associated Artery/Lesion type: [place] artery [place] vs. transplanted heart: [place] heart Associated angina: without angina HTN (hypertension), benign I10 Mixed hyperlipidemia E78.2 Hyperlipidemia type: mixed hyperlipidemia Impaired glucose tolerance R73.02 Generalized anxiety disorder F41.1 Inguinal hernia of left side without obstruction or gangrene K40.90
[2023-10-22 11:03] VITALS: BP 136/80; PULSE 72; O2SAT 96; BMI 29.2
== END 2023-10-22 11:41 | disposition home or self-care (01) ==
PROVIDERS: PCP Internal Medicine; Visit Provider Internal Medicine
DX: Z00.00 Encounter for general adult medical examination without abnormal findings (principal); Z72.0 Tobacco use; I25.10 Atherosclerotic heart disease of native coronary artery without angina pectoris; I10 Essential (primary) hypertension; E78.2 Mixed hyperlipidemia; R73.02 Impaired glucose tolerance (oral); F41.1 Generalized anxiety disorder; K40.90 Unilateral inguinal hernia, without obstruction or gangrene, not specified as recurrent
CPT/HCPCS: 99396

== ENCOUNTER 2023-11-15 13:50 | Outpatient (AMB) | payer OTHER, SELFPAY ==
--- NOTE | 2023-11-15 13:54 | MHC.OFFVIS ---
Vital Signs 11/15/23 13:55 Height 5 ft 8 in Weight 196 lb BMI 29.8 Intake Visit Reasons: Unilateral inguinal hernia Intake Note: This patient presents for Unilateral inguinal hernia assessment. Pt c/o: left groin, reports discomfort depending on daily activities, reports bulge, reports no changes in bowel habits. Flatbed Stitcher Required: No Accompanied by: Self / Same As Patient Allergies No Known Allergies Allergy (Verified 11/15/23 14:01) Medication List - Last Reconciled 11/15/23 by Hector Medeiros MD alprazolam 0.25 mg PO DAILY PRN aspirin (Adult Low Dose Aspirin) 81 mg PO DAILY ezetimibe 10 mg PO DAILY famotidine 40 mg PO BEDTIME fenofibrate nanocrystallized 145 mg PO DAILY hydrocortisone 2.5% (Proctosol HC) 1 appl CO BID-QID PRN nebivolol 2.5 mg PO DAILY acmxnygk-ptneherxq-HM 3.5-10,000-1 mg/mL-unit/mL-% 4 drps otic (ears) Q8H 10 days rosuvastatin 40 mg PO DAILY 90 days sildenafil 100 mg PO DAILY PRN 10 days varenicline (Chantix Starting Month Box) PO PER PKG DIR HPI HPI Unilateral inguinal hernia: Details: 53-year-old male here for an inguinal hernia on the left side. He states that he has had this reducible mass on the left side for about 18 years now. He says that this really did not bother him before. However, he says that this seems to be worsening with regards to the size. He also says that he once in a while he was some ?gas bubbles? on the area. He describes some discomfort. He feels well overall. He does have a history of an DC at age of 39 and had a stent placed around that time. He is not on any anticoagulant. He is on baby aspirin. 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 Gerardo. [facility] Medical History Internal hemorrhoids without complication Tubular adenoma Colon cancer screening Impaired glucose tolerance COVID-19 virus infection Polysubstance abuse Erectile dysfunction Anxiety Tobacco abuse Alcohol abuse GERD (gastroesophageal reflux disease) Vitamin D deficiency Vitamin B12 deficiency Overweight (BMI 25.0-29.9) Epidermal inclusion cyst Hand injury CAD (coronary artery disease) Hyperlipidemia HTN (hypertension), benign Surgical History Hx of colonoscopy History of coronary artery stent placement History of removal of cyst History of adenoidectomy History of nasal surgery Family History Mother Myocardial infarct Father Myocardial infarct Social History Housing: House Are you a primary critical care transport nurse to a significant other at home: No Do you presently have visiting nurse or other home services: No Alcohol intake: former Comment: stopped 09/22/2022!! Patient Tobacco Use Status: Current everyday Tobacco user Tobacco use type: Cigarette Cigarette Packs Per Day: 0.5 Cigarettes Per Day: 5 Years Smoked: 25 +/- e-Cigarette/Vaping Use: Never Used Second Hand Smoke Exposure: Yes service: No Current occupational status: employed Cognitive needs: No Hearing needs: No Vision needs: Yes Review of Systems Const Denies chills and Denies fever(s) Card Denies chest pain, Denies dyspnea and Denies dyspnea on exertion Resp Denies cough, Denies dyspnea and Denies dyspnea on exertion GI Denies hematochezia and Denies change in bowel habits Denies hematuria and Denies difficulty urinating Musc Denies back pain and Denies limited range of motion Neuro Denies focal weakness and Denies convulsions Psych Denies depression and Denies mood swings Physical Exam Vital Signs: BMI result Body Mass Index 29.8 Const General: comfortable and no acute distress Orientation/consciousness: patient oriented x3 Neck Neck: Yes no lymphadenopathy Resp Auscultation: clear to auscultation bilaterally Cardio Rhythm: regular rhythm GI Other: Left inguinal hernia, reducible, more pronounced with Valsalva Palpation (GI): Soft to palpation, nontender and no guarding Neuro General: patient oriented x3 Assessment & Plan Assessment & Plan (1) Inguinal hernia of left side without obstruction or gangrene: Code(s): K40.90 - Unilateral inguinal hernia, without obstruction or gangrene, not specified as recurrent Category: Medical Plan He has a reducible left inguinal hernia and this has been starting to bother him. He feels that this is getting bigger. He wants this repaired. I reviewed with him the technique of repair of the inguinal hernia with mesh. I explained the risks including but not limited to bleeding, infections, injury to bowel and the vas deferens, recurrence, postop pain, as well as the benefits and alternatives. I also explained to him what to expect postoperatively. He says he understands and wants to proceed. Coding Level of Care Code Est Pt Level 3 (18317) Diagnoses Inguinal hernia of left side without obstruction or gangrene K40.90
[2023-11-15 13:55] VITALS: BMI 29.8
== END 2023-11-15 14:11 | disposition home or self-care (01) ==
PROVIDERS: PCP Internal Medicine; Referring Provider Internal Medicine; Visit Provider Surgery
DX: K40.90 Unilateral inguinal hernia, without obstruction or gangrene, not specified as recurrent (principal)
CPT/HCPCS: 99213

== ENCOUNTER → 2023-11-15 13:50 | Outpatient (BNVA) | payer OTHER, SELFPAY | PROVIDERS: PCP Internal Medicine; Referring Provider Internal Medicine; Visit Provider Surgery ==

== ENCOUNTER 2023-12-07 10:23 | Day surgery (SDC) | payer OTHER, SELFPAY ==
[2023-12-03 13:44] VITALS: BMI 29.8
--- NOTE | 2023-12-03 14:19 | HO.ANESPROP2 ---
Documented by User: Jannette Morales NP 12/03/23 14:24 HPI - Anesthesia Eval Consult details Narrative: 53yo M for Left Hernia Inguinal Repair Follows [facility] [place] Cardiology for CAD with acute anterior wall ME in 2008 with LAD stent placement probably related to cocaine use HTN Stable at 06/2023 routine yearly visit [facility] Active Problems Active Problems: All Active Problems Inguinal hernia of left side without obstruction or gangrene (Acute) Contusion of right hand (Acute) Alcohol abuse (Acute) Generalized anxiety disorder (Acute) Annual physical exam (Acute) Tubular adenoma (Acute) Impaired glucose tolerance (Acute) Tobacco abuse (Acute) GERD (gastroesophageal reflux disease) (Acute) Overweight (BMI 25.0-29.9) (Acute) CAD (coronary artery disease) (Acute) HTN (hypertension), benign (Acute) Hyperlipidemia (Acute) Past Medical History Medical History Internal hemorrhoids without complication Tubular adenoma Colon cancer screening Impaired glucose tolerance COVID-19 virus infection Polysubstance abuse Erectile dysfunction Anxiety Tobacco abuse Alcohol abuse GERD (gastroesophageal reflux disease) Vitamin D deficiency Vitamin B12 deficiency Overweight (BMI 25.0-29.9) Epidermal inclusion cyst Hand injury CAD (coronary artery disease) Hyperlipidemia HTN (hypertension), benign Family History Family History Mother Myocardial infarct Father Myocardial infarct Family history of problems with anesthesia: No Surgical History Surgical History (Updated 12/03/23 @ 13:40 by Yaquelin Riley RN) Hx of colonoscopy History of coronary artery stent placement History of removal of cyst History of adenoidectomy History of nasal surgery History of Problems with Anesthesia: No Social History Social History Housing: House Are you a primary director of critical care to a significant other at home: No Do you presently have visiting nurse or other home services: No Alcohol intake: former Comment: stopped 09/22/2022!! Patient Tobacco Use Status: Current everyday Tobacco user Tobacco use type: Cigarette Cigarette Packs Per Day: 0.5 Cigarettes Per Day: 5 Years Smoked: 25 +/- e-Cigarette/Vaping Use: Never Used Second Hand Smoke Exposure: Yes Use of substances other than those prescribed or required for medical reasons: No Are you DNR?: No Advance Directives: No Advance Directives Information Provided: Yes Advance Directives on File: No Recently lost weight without trying: No Nutrition Risks: No Nutritional Risk service: No Current occupational status: employed Cognitive needs: No Hearing needs: No Vision needs: Yes Meds Allergies Allergy/AdvReac Type Severity Reaction Status Date / Time No Known Allergies Allergy Verified 11/15/23 14:01 Home Medications ?Medication ?Instructions ?Recorded ?Confirmed ?Last Taken ?Type aspirin 81 mg tablet,delayed 81 mg PO DAILY 12/14/19 12/03/23 04/02/21 History release (Adult Low Dose Aspirin) Exam Height,Weight and Vital Signs: Height 5 ft 8 in Weight 88.904 kg Narrative Narrative: EKG 07/2023 normal sinus rhythm with normal EKG at 67 beats per minute ECHO 02/2023 Conclusions: - The left ventricular systolic function is normal. The calculated ejection fraction is 61% by biplane method. - No obvious valvular pathology seen on this study. Assessment and Plan Assessment Anesthesia Assessment: Chart Reviewed Final Anesthetic Review Family History of Problems with Anesthesia: No History of Problems with Anesthesia: No Documented by User: Eloisa Nevarze MD 12/07/23 12:29 PMFSH Past Medical History Medical History Internal hemorrhoids without complication Tubular adenoma Colon cancer screening Impaired glucose tolerance COVID-19 virus infection Polysubstance abuse Erectile dysfunction Anxiety Tobacco abuse Alcohol abuse GERD (gastroesophageal reflux disease) Vitamin D deficiency Vitamin B12 deficiency Overweight (BMI 25.0-29.9) Epidermal inclusion cyst Hand injury CAD (coronary artery disease) Hyperlipidemia HTN (hypertension), benign Family History Family History Mother Myocardial infarct Father Myocardial infarct Surgical History Surgical History (Updated 12/03/23 @ 13:40 by Yaquelin Riley RN) Hx of colonoscopy History of coronary artery stent placement History of removal of cyst History of adenoidectomy History of nasal surgery Social History Social History Housing: House Are you a primary director of critical care to a significant other at home: No Do you presently have visiting nurse or other home services: No Alcohol intake: former Comment: stopped 09/22/2022!! Patient Tobacco Use Status: Current everyday Tobacco user Tobacco use type: Cigarette Cigarette Packs Per Day: 0.5 Cigarettes Per Day: 5 Years Smoked: 25 +/- e-Cigarette/Vaping Use: Never Used Second Hand Smoke Exposure: Yes Use of substances other than those prescribed or required for medical reasons: No Are you DNR?: No Advance Directives: No Advance Directives Information Provided: Yes Advance Directives on File: No Recently lost weight without trying: No Nutrition Risks: No Nutritional Risk service: No Current occupational status: employed Cognitive needs: No Hearing needs: No Vision needs: Yes Meds Allergies Allergy/AdvReac Type Severity Reaction Status Date / Time No Known Allergies Allergy Verified 11/15/23 14:01 Home Medications ?Medication ?Instructions ?Recorded ?Confirmed ?Last Taken ?Type aspirin 81 mg tablet,delayed 81 mg PO DAILY 12/14/19 12/03/23 04/02/21 History release (Adult Low Dose Aspirin) Exam Airway Mallampati Class: II TM Dist: >3cm Neck ROM: Full Assessment and Plan Assessment Anesthesia Assessment: Anesthesia Plan Discussed Final Anesthetic Review NPO: Yes ASA Class: III Final Preanesthetic Review: No Changes in Pt Med Stat, Meds/Allgs Chart Reviewed, Consent Obtained/Reviewed and Anes Risks/Benef Reviewed Patient Risk: Intermediate Procedure Risk: Low Anesthetic Plan Anesthetic Plan: GA Disposition: Standard PACU
--- NOTE | 2023-12-07 10:50 | MHC.SHP ---
Pre-Procedural Eval Section A - 24 Hr Update-Section A only Date of Service: 12/07/23 The patient is an INPATIENT: No Changes since office visit: No Cold of Flu in the past 2 weeks, No New Medical Problems, No Changes in Medication and No Patient answered all questions The patient has been examined within 24 hours of the surgical procedure. The History & Physical has been completed within 30 days and I have reviewed it.: Yes Section B - Complete if H&P > 30 days Chief Complaint: Unilateral inguinal hernia, without obstruction Allergies: Allergies Allergy/AdvReac Type Severity Reaction Status Date / Time No Known Allergies Allergy Verified 11/15/23 14:01 Plan I have reviewed the history and physical and performed a pertinent physical examination on my patient. No changes have occurred unless specified. Time Spent With Patient Time: Total time managing care of this patient today ____ minutes.
[2023-12-07 11:40] VITALS: BMI 28.6
[2023-12-07 11:43] VITALS: BP 146/88; PULSE 63; RESP 16; TEMP 37.2; O2SAT 97
[2023-12-07 11:51] LABS: Hematocrit 42.3 % (42.0-52.0); Hemoglobin 14.5 g/dl (14.0-18.0); Mean Corpuscular HGB Conc 34.3 g/dl (31.0-36.0); Mean Corpuscular Hemoglobin 32.4 pg (27.0-33.0); Mean Corpuscular Volume 94.4 fL (80.0-98.0); Mean Platelet Volume 10.4 fL (9.4-12.4); Platelet Count 272 X10*3/uL (160-400); Red Blood Count 4.48 X10*6/uL (4.60-5.80); Red Cell Distribution Width 13.5 % (11.0-16.0); White Blood Count 8.3 X10*3/uL (4.8-10.8)
[2023-12-07 11:54] LABS: Anion Gap 10 (12-20); Blood Urea Nitrogen 12 mg/dL (9-16); Calcium 9.1 mg/dL (8.4-10.2); Carbon Dioxide 23 mmol/L (22-29); Chloride 115 mmol/L (96-108); Creatinine Clr Calc Pharmacy 100.8; Estimated Glomerular Filt Rate > 60; Glucose Fasting 104 mg/dL (60-99); Potassium 3.9 mmol/L (3.3-5.1); Sodium 144 mmol/L (135-145)
[2023-12-07] MEDS: Lactated Ringers 1,000 ML 100 ML IVCONT (12:05)
--- NOTE | 2023-12-07 13:22 | P.OP_ITS ---
Operative Note Operative Note Date of Service: 12/07/23 Narrative: Preop diagnosis: Left inguinal hernia, reducible Postop diagnosis: Left inguinal hernia, reducible, indirect Procedure: Repair of a left inguinal hernia with mesh Surgeon: Hector Medeiros MD procurement assistant: ELEAZAR Adams The patient is a 53-year-old male with a reducible mass of the left groin consistent with an inguinal hernia. He understood the technique of the planned procedure as well as the risks, benefits, and alternatives He was brought to the operating room placed supine under general anesthesia via laryngeal mask airway. The left groin was prepped and draped in the usual sterile fashion. A surgical time-out was done. The patient received cefazolin 2 g IV preoperatively. I infiltrated the planned line of incision with lidocaine 1%. I made a short incision on the skin along an imaginary line from the anterior superior iliac spine to the pubic ramus using a blade 15. This was carried down through the full-thickness of the skin subcutaneous fat with electrocautery. The external oblique aponeurosis was exposed. By doing so, I was able to identify the external ring. I made a short incision on the external oblique aponeurosis overlying the inguinal canal with a blade 15. This was extended infero medially to connect with the external ring. The inguinal canal was entered. I applied hemostasis on the divided edges of the aponeurosis. I bluntly dissected the underside of the aponeurosis. I then proceeded to do blunt dissection of the spermatic cord and its contents with my index finger until I was able to pass a Josh drain around this. The Josh drain was used for retraction. I identified the vas deferens and the accompanying vessels. I proceeded to then gently separate other contents of the cord until I was able to visualize the hernia sac along with a large lipoma. I the sac from the rest of the cord contents gently he will I was able to completely reduce this through the internal ring. This was therefore indirect hernia. I reinforced the internal ring with a medium-sized plug. The plug was secured with Prolene 2-0 sutures to the shelving edge of the ligament laterally and the internal oblique superiorly medially. I reinforced the entire floor of the canal with a keyhole mesh. The tails of the mesh were passed around the cord at the level of the internal ring and were secured together with Prolene 2-0 sutures. I secured the mesh to the shelving edge of the inguinal meant laterally, the internal oblique medially and the pubic ramus inferomedially using Prolene 2 sutures. The mesh was therefore flat at the end. I removed the Josh drain. I irrigated. We observed for hemostasis. Once hemostasis was confirmed, I closed the external oblique aponeurosis with a running Polysorb 2-0 stitch to re-create the external ring. The subcutaneous layer was reapposed with Polysorb 3-0 interrupted sutures. Skin closure was achieved with Polysorb 4-0 subcuticular running stitch. The incision was infiltrated with Marcaine 5% for postop analgesia. Dressings were applied. The procedure was completed. The patient tolerated the procedure well. There were no immediate complications. Initial and final counts of sponges and instruments were correct. Estimated blood loss was about 10 cc. The patient was extubated without difficulty and transferred to the recovery room with stable vital signs.
[2023-12-07 13:41] VITALS: BP 133/84; PULSE 68; RESP 15; TEMP 36.6; O2SAT 97
[2023-12-07 13:46] VITALS: BP 140/73; PULSE 75; RESP 22; O2SAT 97
[2023-12-07 14:00] VITALS: BP 138/84; PULSE 63; RESP 18; TEMP 36.4; O2SAT 99
== END 2023-12-07 14:26 | disposition home or self-care (01) ==
PROVIDERS: Nurse Practitioner; PCP Internal Medicine; Visit Provider Surgery
PROC: (CPT 49505; principal; 2023-12-07 13:00)
DX: K40.90 Unilateral inguinal hernia, without obstruction or gangrene, not specified as recurrent (principal); I25.10 Atherosclerotic heart disease of native coronary artery without angina pectoris; Z95.5 Presence of coronary angioplasty implant and graft; I25.2 Old myocardial infarction; I10 Essential (primary) hypertension; E78.5 Hyperlipidemia, unspecified; E55.9 Vitamin D deficiency, unspecified; R73.02 Impaired glucose tolerance (oral); K21.9 Gastro-esophageal reflux disease without esophagitis; E66.3 Overweight; Z68.29 Body mass index [BMI] 29.0-29.9, adult; Z79.82 Long term (current) use of aspirin; Z79.899 Other long term (current) drug therapy; F17.210 Nicotine dependence, cigarettes, uncomplicated; F19.10 Other psychoactive substance abuse, uncomplicated; F10.10 Alcohol abuse, uncomplicated
CPT/HCPCS: 49505; 36415; 80048; 85027; C1781; J0131; J0690; J1100; J2003; J2250; J2405; J2704; J2795; J3010

== ENCOUNTER → 2023-12-07 10:23 | Outpatient (BNV) | payer OTHER, SELFPAY | PROVIDERS: PCP Internal Medicine; Visit Provider Surgery | DX: K40.90 Unilateral inguinal hernia, without obstruction or gangrene, not specified as recurrent (principal) | CPT/HCPCS: 49505 ==

== ENCOUNTER 2023-12-20 09:04 | Outpatient (AMB) | payer OTHER, SELFPAY ==
--- NOTE | 2023-12-20 09:06 | A.OFFVIS_ITS ---
Intake Visit Reasons: S/P LIH w/mesh Intake Note: This patient presents for post-op assessment status post left inguinal hernia with mesh. Pt c/o; reports no complaints pertaining to surgery. Unishear Operator Required: No Accompanied by: Self / Same As Patient Allergies No Known Allergies Allergy (Verified 12/20/23 09:10) HPI HPI S/P LIH w/mesh: Details: He underwent repair of a left inguinal hernia with mesh last December 07, 2023. He tolerated procedure well. He is doing well but says he still has some pain on the incision especially with movement. [facility] Medical History Internal hemorrhoids without complication Tubular adenoma Colon cancer screening Impaired glucose tolerance COVID-19 virus infection Polysubstance abuse Erectile dysfunction Anxiety Tobacco abuse Alcohol abuse GERD (gastroesophageal reflux disease) Vitamin D deficiency Vitamin B12 deficiency Overweight (BMI 25.0-29.9) Epidermal inclusion cyst Hand injury CAD (coronary artery disease) Hyperlipidemia HTN (hypertension), benign Surgical History History of left inguinal hernia repair (~12/07/23) Hx of colonoscopy History of coronary artery stent placement History of removal of cyst History of adenoidectomy History of nasal surgery Family History Mother Myocardial infarct Father Myocardial infarct Social History Housing: House Are you a primary managed care coordinator to a significant other at home: No Do you presently have visiting nurse or other home services: No Alcohol intake: former Comment: stopped 09/22/2022!! Patient Tobacco Use Status: Current everyday Tobacco user Tobacco use type: Cigarette Cigarette Packs Per Day: 0.5 Cigarettes Per Day: 5 Years Smoked: 25 +/- e-Cigarette/Vaping Use: Never Used Second Hand Smoke Exposure: Yes service: No Current occupational status: employed Cognitive needs: No Hearing needs: No Vision needs: Yes Review of Systems Const Denies chills and Denies fever(s) Card Denies dyspnea Resp Denies dyspnea GI Denies vomiting Physical Exam Const Other: Ambulating General: comfortable and no acute distress Resp Effort & Inspection: normal respiratory effort GI Other: Left inguinal hernia repair site well healed, not infected, repair is intact Palpation (GI): Soft to palpation Assessment & Plan Assessment & Plan (1) Inguinal hernia of left side without obstruction or gangrene: Code(s): K40.90 - Unilateral inguinal hernia, without obstruction or gangrene, not specified as recurrent Category: Medical Plan: Status post repair with mesh. He is doing. The incision is well healed. Th follow up on a p.r.n. basis. e repair is intact. I advised him to avoid lifting anything more than 20 lb for at least 2 more weeks. He can follow up on a p.r.n. basis Coding Level of Care Code Global (95412) Diagnoses Inguinal hernia of left side without obstruction or gangrene K40.90
== END 2023-12-20 09:33 | disposition home or self-care (01) ==
LOC: HO.HGS 09:05
PROVIDERS: PCP Internal Medicine; Visit Provider Surgery
DX: K40.90 Unilateral inguinal hernia, without obstruction or gangrene, not specified as recurrent (principal)
CPT/HCPCS: 99024

== ENCOUNTER → 2023-12-20 09:04 | Outpatient (BNVA) | payer OTHER, SELFPAY | PROVIDERS: PCP Internal Medicine; Visit Provider Surgery ==

== ENCOUNTER 2024-04-19 07:07 | Outpatient (REF) | payer OTHER, SELFPAY ==
[2024-04-19 07:18] LABS: MANUAL DIFF FLAG NO
[2024-04-19 08:00] LABS: Basophils Absolute Auto 0.1 X10*3/uL (0.0-0.2); Basophils Percent Auto 0.6 % (0-2); Eosinophils Absolute Auto 0.2 X10*3/uL (0.0-0.4); Eosinophils Percent Auto 1.8 % (0-4); Hematocrit 46.9 % (42.0-52.0); Hemoglobin 15.8 g/dl (14.0-18.0); Imm Gran Abs Auto 0.05 X10*3/uL (0.00-0.03); Imm Gran Pct Auto 0.6 % (0.0-0.4); Lymphocytes Absolute Auto 2.2 X10*3/uL (1.2-4.9); Lymphocytes Percent Auto 26.7 % (20-40); Mean Corpuscular HGB Conc 33.7 g/dl (31.0-36.0); Mean Corpuscular Hemoglobin 32.1 pg (27.0-33.0); Mean Corpuscular Volume 95.3 fL (80.0-98.0); Mean Platelet Volume 10.7 fL (9.4-12.4); Monocytes Absolute Auto 0.8 X10*3/uL (0.1-1.2); Neutrophils Absolute Auto 5.1 x10*3/uL (2.0-8.3); Neutrophils Percent Auto 61.3 % (45-73); Platelet Count 295 X10*3/uL (160-400); Red Blood Count 4.92 X10*6/uL (4.60-5.80); Red Cell Distribution Width 13.9 % (11.0-16.0); White Blood Count 8.3 X10*3/uL (4.8-10.8)
[2024-04-19 08:12] LABS: Estimated Average Glucose 120 mg/dL; Hemoglobin A1C 161.2647 umol/L; Hemoglobin A1c % 5.8 % (<6.0); Total Hemoglobin (HGBA1C) 4090.4268 umol/L
[2024-04-19 08:19] LABS: Alanine Aminotransferase 44 U/L (0-40); Albumin Level 4.6 g/dL (3.5-5.0); Alkaline Phosphatase 68 U/L (39-117); Anion Gap 12 (12-20); Aspartate Amino Transferase 45 U/L (5-37); Bilirubin Total 0.9 mg/dL (0.0-1.0); Blood Urea Nitrogen 11 mg/dL (9-16); Calcium 9.3 mg/dL (8.4-10.2); Carbon Dioxide 24 mmol/L (22-29); Chloride 111 mmol/L (96-108); Cholesterol 129 mg/dL (<200); Estimated Glomerular Filt Rate > 60; Glucose Random 126 mg/dL (60-115); HDL Cholesterol 31 mg/dL (>40); LDL Cholesterol Calculated 66 mg/dL (<100); Potassium 4.2 mmol/L (3.3-5.1); Sodium 143 mmol/L (135-145); Total Protein 7.7 g/dL (6.5-8.0); Triglycerides 162 mg/dL (<150)
[2024-04-19 08:42] LABS: Free T4 (Free Thyroxine) 0.89 ng/dL (0.71-1.85); Thyroid Stimulating Hormone 1.98 uIU/mL (0.32-4.0)
[2024-04-19 08:47] LABS: Folate 11.1 ng/mL (> or = 4.0); Prostate Specific Antigen Scr 1.82 ng/mL (<0.05-4.0); Vitamin B12 270 pg/mL (200-900)
== END 2024-04-19 07:08 | disposition home or self-care (01) ==
LOC: HO.LAB 07:07
PROVIDERS: PCP Internal Medicine; Visit Provider Internal Medicine
DX: Z02.0 Encounter for examination for admission to educational institution (principal); I25.10 Atherosclerotic heart disease of native coronary artery without angina pectoris; E78.00 Pure hypercholesterolemia, unspecified; R73.02 Impaired glucose tolerance (oral); Z12.5 Encounter for screening for malignant neoplasm of prostate
CPT/HCPCS: 36415; 80053; 80061; 82607; 82746; 83036; 84153; 84439; 84443; 85025; 86787

== ENCOUNTER 2024-04-21 12:38 | Outpatient (AMB) | payer OTHER, SELFPAY ==
--- NOTE | 2024-04-21 13:03 | MHC.PC.OV ---
Vital Signs 04/21/24 13:06 Weight 193 lb Temp 98.0 F Intake Visit Reasons: cad Schedule Supervisor Required: No Accompanied by: Self / Same As Patient Allergies No Known Allergies Allergy (Verified 04/21/24 13:04) Medication List - Last Reconciled 04/21/24 by Kaela Greene MD alprazolam 0.25 mg PO DAILY PRN aspirin (Adult Low Dose Aspirin) 81 mg PO DAILY ezetimibe 10 mg PO DAILY famotidine 40 mg PO BEDTIME fenofibrate nanocrystallized 145 mg PO DAILY nebivolol 2.5 mg PO DAILY rosuvastatin 40 mg PO DAILY sildenafil 100 mg PO DAILY PRN 10 days Tobacco use date assessed: 04/21/24 Dental Screening Dental Screen Date: 10/22/23 Did you have a dental visit in the last 12 months?: Yes Did you have a dental problem in the last 6 months where you did not have access to dental care?: No PFSH Medical History (Updated 04/21/24 @ 13:26 by Kaela Greene MD) Internal hemorrhoids without complication Tubular adenoma Colon cancer screening Impaired glucose tolerance COVID-19 virus infection Polysubstance abuse Erectile dysfunction Anxiety Tobacco abuse Alcohol abuse GERD (gastroesophageal reflux disease) Vitamin D deficiency Vitamin B12 deficiency Overweight (BMI 25.0-29.9) Epidermal inclusion cyst Hand injury CAD (coronary artery disease) Hyperlipidemia HTN (hypertension), benign Surgical History History of left inguinal hernia repair (~12/07/23) Hx of colonoscopy History of coronary artery stent placement History of removal of cyst History of adenoidectomy History of nasal surgery Family History Mother Myocardial infarct Father Myocardial infarct Social History Housing: House Are you a primary patient care representative to a significant other at home: No Do you presently have visiting nurse or other home services: No Alcohol intake: former Comment: stopped 09/22/2022!! Patient Tobacco Use Status: Current everyday Tobacco user Tobacco use type: Cigarette Cigarette Packs Per Day: 0.5 Cigarettes Per Day: 5 Years Smoked: 25 +/- e-Cigarette/Vaping Use: Never Used Second Hand Smoke Exposure: Yes service: No Current occupational status: employed Cognitive needs: No Hearing needs: No Vision needs: Yes Questionnaire PHQ-9 Over the last 2 weeks, how often have you been bothered by any of the following problems? 1. Little interest or pleasure in doing things: not at all 2. Feeling down, depressed, or hopeless: not at all 3. Trouble falling or staying asleep, or sleeping too much: not at all 4. Feeling tired or having little energy: not at all 5. Poor appetite or overeating: not at all 6. Feeling bad about yourself - or that you are a failure or have let yourself or your family down: not at all 7. Trouble concentrating on things, such as reading the newspaper or watching television: not at all 8. Moving or speaking so slowly that other people could have noticed. Or the opposite - being so fidgety or restless that you have been moving around a lot more than usual: not at all 9. Thoughts that you would be better off or of hurting yourself in some way: not at all Total score: 0 Depression Screening Interpretation: Negative Depression Screening Done: Yes Source: Developed by Drs. Kareem Nguyen, Wen Torres, Lucas You and colleagues, with an educational ryan from [employer]. Thrive Questionnaire Date Thrive assessed: 04/21/24 I am a: Patient What is your living situation today?: I have a steady place to live Within the past 12 months, did the food you bought not last and you didn't have the money to get more?: Never true Within the past 12 months, did you worry whether your food would run out before you got money to buy more?: Never true Do you have trouble paying for medicines?: No Do you have trouble getting transportation to medical appointments?: No Do you have trouble paying your heating and electricity bill?: No Do you have trouble taking care of your child, family member or friend?: No Do you have trouble with day-to-day activities such as bathing, preparing meals, shopping, managing finances, etc.?: No Are you currently unemployed and looking for a job?: No Are you interested in more education?: No Please select the resources that you would like help with: None Currently or been in a relationship where the following occur: No concerns reported THRIVE Score: 0 AUDIT C Alcohol Use Questionnaire (AUDIT-C) 1. How often do you have a drink containing alcohol?: Never Total Score: 0 VANESSA-7 AMB Questionnaire VANESSA-7 Date VANESSA - 7 assessed: 04/21/24 Feeling nervous, anxious, or on edge: 0 = Not at all Not being able to stop or control worryin = Not at all Worrying too much about different things: 0 = Not at all Trouble relaxin = Not at all Being so restless that it is hard to sit still: 0 = Not at all Becoming easily annoyed or irritable: 0 = Not at all Feeling afraid as if something awful might happen: 0 = Not at all Total VANESSA-7 score (0-4 normal; 5-9 mild; 10-14 moderate; 15-21 severe): 0 Source: Developed by Drs. Kareem Nguyen, Wen Torres, Lucas You and colleagues, with an educational ryan from [employer]. Physical exam (Primary Care) Vital Signs: Last Vital Signs Temp 98.0 F 04/21/24 13:06 Tobacco/Smoking Status: Tobacco use Status Tobacco use date assessed 04/21/24 04/21/24 13:12 Patient Tobacco Use Status Current everyday Tobacco 04/21/24 13:04 Tobacco use type Cigarette 04/21/24 13:04 e-Cigarette/Vaping Use Never Used 04/21/24 13:04 PHQ-9: PHQ-9 Score PHQ-9: Total score 0 04/21/24 13:27 Depression Screening Interpretation: Negative Thrive Assessment: Date of Thrive Assessment Date Thrive assessed 04/21/24 04/21/24 13:04 Currently or been in a relationship where the following occur: No concerns reported Const General: alert; No acute distress Eyes Conjunctivae: conjunctivae normal Resp Auscultation: clear to auscultation bilaterally Cardio Rate: regular rate Rhythm: regular rhythm GI Inspection: Yes normal to inspection Extrem General: Yes normal to inspection and No edema Coding Level of Care Code Est Pt Level 4 (48632) Complex EM visit Add On G2211 Diagnoses Coronary artery disease involving [place] coronary artery of [place] heart without angina pectoris I25.10 Associated angina: without angina Coronary Disease-Associated Artery/Lesion type: [place] artery [place] vs. transplanted heart: [place] heart HTN (hypertension), benign I10 Mixed hyperlipidemia E78.2 Hyperlipidemia type: mixed hyperlipidemia Overweight (BMI 25.0-29.9) E66.3 Gastroesophageal reflux disease without esophagitis K21.9 Esophagitis presence: without esophagitis Tobacco abuse Z72.0 Impaired glucose tolerance R73.02 Generalized anxiety disorder F41.1 Alcohol abuse F10.10 LFT elevation R79.89 Assessment & Plan Assessment & Plan (1) CAD (coronary artery disease): Comment: [place] 2009 Dr. Gerardo stent placement LAD Code(s): I25.10 - Atherosclerotic heart disease of [place] coronary artery without angina pectoris Category: Medical Qualifiers: Associated angina: without angina Coronary Disease-Associated Artery/Lesion type: [place] artery [place] vs. transplanted heart: [place] heart Qualified Code(s): I25.10 - Atherosclerotic heart disease of [place] coronary artery without angina pectoris Plan: Control the cholesterol, weight, blood pressure, on aspirin 81 mg once a day (2) HTN (hypertension), benign: Code(s): I10 - Essential (primary) hypertension Category: Medical Plan: Continue with blood pressure medication. Decrease salt intake and exercise on nebivolol 2.5 mg once a day (3) Hyperlipidemia: Code(s): E78.5 - Hyperlipidemia, unspecified Category: Medical Qualifiers: Hyperlipidemia type: mixed hyperlipidemia Qualified Code(s): E78.2 - Mixed hyperlipidemia Plan: Avoid fried foods, chicken skin, eggs, butter margarine, pastries and meat. Be it pork or beef they have a lot of cholesterol on rosuvastatin 40 mg once a day fenofibrate 145 mg once a day (4) Overweight (BMI 25.0-29.9): Code(s): E66.3 - Overweight Category: Medical Plan: Diet and exercise (5) GERD (gastroesophageal reflux disease): Code(s): K21.9 - Gastro-esophageal reflux disease without esophagitis Category: Medical Qualifiers: Esophagitis presence: without esophagitis Qualified Code(s): K21.9 - Gastro-esophageal reflux disease without esophagitis Plan: Avoid the foods that causes that usually spicy foods, tomato products, juices, coffee, soda and foods that your sensitive to. After eating do not lie down, allow 3-4 hours before in lie down. And keep the head of bed above 30 degrees to avoid the acid from going up. (6) Tobacco abuse: Code(s): Z72.0 - Tobacco use Category: Medical Plan: Patient is strongly advised to stop smoking! (7) Impaired glucose tolerance: Code(s): R73.02 - Impaired glucose tolerance (oral) Category: Medical Plan: Decrease the amount of carbohydrate intake, pasta, bread, rice and potatoes are all sugar and that is aside from all the sweet stuff, remember that fruits are good but they are Sweet also. (8) Generalized anxiety disorder: Code(s): F41.1 - Generalized anxiety disorder Category: Medical Plan: Continue with present medication of alprazolam as needed (9) Alcohol abuse: Code(s): F10.10 - Alcohol abuse, uncomplicated Category: Social Hx Plan: Patient is strongly advised to refrain from alcohol. (10) LFT elevation: Code(s): R79.89 - Other specified abnormal findings of blood chemistry Category: Medical Plan: Advised to repeat blood test as well as ultrasound of the abdomen Plan History of Present Illness The patient is a 53-year-old male presenting for an annual follow-up addressing chronic health concerns. His history includes essential hypertension controlled with nebivolol, and hypercholesterolemia managed with rosuvastatin and fenofibrate; however, elevated triglycerides persist. Coronary artery disease is maintained on aspirin. He continues to smoke despite counseling against it. Alcohol consumption remains a concern, with intake still frequent. His GERD is managed with diet and lifestyle, following previous identification of tubular adenoma via colonoscopy, and he had a successful left inguinal hernia repair. Current laboratory results reveal elevated liver enzymes and low vitamin B12. There are indications of borderline diabetes, supported by elevated fasting glucose and HbA1c levels. He reports progressive hip pain likely linked to inactivity and potential osteoarthritis. Consistent follow-ups affirm adherence to medication regimens and lifestyle adaptations with evaluations of current treatment efficacy. Health Maintenance - Advised reduction of sodium and continued adequate hydration due to slightly elevated sodium levels attributed to occasional dehydration. - Recommended repeat blood tests to monitor liver function and assess vitamin B12 deficiency. - Discussion and initiation of lifestyle modifications, including dietary changes such as reducing rice intake to manage borderline diabetes risk. - Encouraged physical activity and weight management to potentially improve cholesterol profile and blood sugar levels. - Discussed further investigations, including ultrasound of the abdomen and thyroid function tests. - Suggested evaluation for the shingles vaccine due to previous history of varicella. Social History - Reports of continued alcohol consumption with attempts at reduction using nonalcoholic options. - Active smoker with acknowledged difficulty quitting. - Patient follows a diet high in carbohydrates and reports weight gain due to increased food intake. - Engages in regular daily activity but reports hip pain with potential arthritic cause linked to inactivity. Review of Systems - Musculoskeletal: Reports hip pain exacerbated by inactivity. - Genitourinary: Denies issues but reports nocturia. - Endocrine: Denies symptoms of hyperglycemia aside from elevated laboratory values. - Psychiatric: Denies worsening anxiety but acknowledges ongoing management with alprazolam as needed. Physical Exam Results - Labs: Elevated fasting glucose (126 mg/dL), HbA1c (5.8%), low vitamin B12, elevated liver enzymes (AST 44, ALT 45). - Tests and diagnostics: Triglycerides at 162 mg/dL. Plan Management will focus on maintaining current medication regimens while addressing elevated liver enzymes through additional ultrasound diagnostics and monitoring vitamin levels. Borderline diabetes and elevated triglycerides will be closely monitored with instructions for dietary adjustments. Continuous counseling will be given regarding smoking cessation and alcohol reduction to enhance overall health outcomes. Further investigations and follow-up are scheduled, including an abdominal ultrasound and comprehensive blood tests, providing insights into necessary treatment adjustments. Patient was informed and verbally consented to the use of an ambient scribe for clinic note documentation during this visit. Discussion Notes We discussed at length the management of multiple chronic conditions, emphasizing the importance of medication adherence and lifestyle adjustments. I explained the preliminary status of borderline diabetes, recommending dietary changes and weight loss to reduce risk. In addition, I highlighted the need for liver function monitoring due to recent elevations in enzymes. We consented to schedule further diagnostic imaging to assess liver health. The patient and I revisited the conversation around smoking and alcohol use, discussing the potential benefits of cessation and reduction, respectively, while acknowledging the challenges he faces in these areas. I advised a follow-up plan extending three months post-assessment of dietary and lifestyle interventions. Patient Instructions - Continue taking prescribed medications for hypertension, hypercholesterolemia, and coronary artery disease. - Schedule and complete a follow-up abdominal ultrasound as directed. - Repeat blood tests for liver function and vitamin B12 within one month. - Implement dietary modifications by reducing rice intake and increasing physical activity. - Seek nonalcoholic options and reduce smoking with the goal to quit. - Monitor any new or worsening symptoms related to hip pain and report them during the next visit. - Plan for next follow-up in three months. Orders: Orders Hepatitis B,C Profile 1 Month R79.89 - Other specified abnormal findings of blood chemistry US abdomen complete Today R79.89 - Other specified abnormal findings of blood chemistry Varicella IgG Antibody Today I25.10 - Atherosclerotic heart disease of [place] coronary artery without angina pectoris, Z02.0 - Encounter for examination for admission to [facility] Hemoglobin A1c 1 Month I25.10 - Atherosclerotic heart disease of [place] coronary artery without angina pectoris Comprehensive Met. Panel 1 Month I25.10 - Atherosclerotic heart disease of [place] coronary artery without angina pectoris
[2024-04-21 13:06] VITALS: TEMP 36.7
== END 2024-04-21 13:45 | disposition home or self-care (01) ==
PROVIDERS: PCP Internal Medicine; Visit Provider Internal Medicine
DX: I25.10 Atherosclerotic heart disease of native coronary artery without angina pectoris (principal); I10 Essential (primary) hypertension; E78.2 Mixed hyperlipidemia; E66.3 Overweight; K21.9 Gastro-esophageal reflux disease without esophagitis; Z72.0 Tobacco use; R73.02 Impaired glucose tolerance (oral); F41.1 Generalized anxiety disorder; F10.10 Alcohol abuse, uncomplicated; R79.89 Other specified abnormal findings of blood chemistry

== ENCOUNTER → 2024-04-21 12:38 | Outpatient (BNVA) | payer OTHER, SELFPAY | PROVIDERS: PCP Internal Medicine; Visit Provider Internal Medicine ==

== ENCOUNTER 2024-05-21 07:54 | Outpatient (REF) | payer OTHER, SELFPAY ==
--- NOTE | ~2024-05-21 | US_ITS ---
CLINICAL HISTORY: R79.89 - Other specified abnormal findings of blood chemistry US abdomen complete Comparison: None Findings: The visualized pancreas is normal. The aorta and inferior vena cava are normal caliber. The appearance of the liver suggests fatty infiltration without focal lesion. There is no intrahepatic bile duct dilatation. The common duct is 3.0 mm in diameter. The gallbladder is normal. There is no sonographic Collier sign. The main portal vein is antegrade. The right kidney is 12.6 cm in length. The left kidney is 12.8 cm in length. The spleen is normal. No ascites. IMPRESSION: 1. Hepatic steatosis. This document has been electronically signed by: Job Johnson MD on 05/22/2024 08:55:17
== END 2024-05-21 07:55 | disposition home or self-care (01) ==
LOC: HO.US 07:54
PROVIDERS: PCP Internal Medicine; Visit Provider Internal Medicine
DX: R79.89 Other specified abnormal findings of blood chemistry (principal)
CPT/HCPCS: 76700

== ENCOUNTER → 2024-05-21 07:57 | Outpatient (BNV) | payer OTHER, SELFPAY | PROVIDERS: PCP Internal Medicine; Visit Provider Specialist | DX: R74.01 Elevation of levels of liver transaminase levels (principal); K76.0 Fatty (change of) liver, not elsewhere classified | CPT/HCPCS: 76700 ==

== ENCOUNTER 2024-06-30 12:33 | Outpatient (AMB) | payer OTHER, SELFPAY ==
--- NOTE | 2024-06-30 12:37 | A.OFFPC_ITS ---
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: No Accompanied by: Self / Same As Patient Allergies No Known Allergies Allergy (Verified 06/30/24 12:37) Tobacco use date assessed: 04/21/24 Dental Screening Dental Screen Date: 06/30/24 Did you have a dental visit in the last 12 months?: Yes Did you have a dental problem in the last 6 months where you did not have access to dental care?: No Was dental information given to patient?: Patient has dentist [facility] Medical History (Updated 06/30/24 @ 12:59 by Kaela Greene MD) LFT elevation Internal hemorrhoids without complication Tubular adenoma Colon cancer screening Impaired glucose tolerance COVID-19 virus infection Polysubstance abuse Erectile dysfunction Anxiety Tobacco abuse Alcohol abuse GERD (gastroesophageal reflux disease) Vitamin D deficiency Vitamin B12 deficiency Overweight (BMI 25.0-29.9) Epidermal inclusion cyst Hand injury CAD (coronary artery disease) Hyperlipidemia HTN (hypertension), benign Surgical History History of left inguinal hernia repair (~12/07/23) Hx of colonoscopy History of coronary artery stent placement History of removal of cyst History of adenoidectomy History of nasal surgery Family History Mother Myocardial infarct Father Myocardial infarct Social History Housing: House Are you a primary care transition manager to a significant other at home: No Do you presently have visiting nurse or other home services: No Alcohol intake: former Comment: stopped 09/22/2022!! Patient Tobacco Use Status: Current everyday Tobacco user Tobacco use type: Cigarette Cigarette Packs Per Day: 0.5 Cigarettes Per Day: 5 Years Smoked: 25 +/- Packs Per Year: 0 Packs per year/per ci.00 e-Cigarette/Vaping Use: Never Used Second Hand Smoke Exposure: Yes service: No Current occupational status: employed Cognitive needs: No Hearing needs: No Vision needs: Yes Questionnaire PHQ-9 Over the last 2 weeks, how often have you been bothered by any of the following problems? 1. Little interest or pleasure in doing things: not at all 2. Feeling down, depressed, or hopeless: not at all 3. Trouble falling or staying asleep, or sleeping too much: not at all 4. Feeling tired or having little energy: not at all 5. Poor appetite or overeating: not at all 6. Feeling bad about yourself - or that you are a failure or have let yourself or your family down: not at all 7. Trouble concentrating on things, such as reading the newspaper or watching television: not at all 8. Moving or speaking so slowly that other people could have noticed. Or the opposite - being so fidgety or restless that you have been moving around a lot more than usual: not at all 9. Thoughts that you would be better off or of hurting yourself in some wa y: not at all Total score: 0 Depression Screening Interpretation: Negative Depression Screening Done: Yes 89333 - PHQ-9 Billing: Yes Source: Developed by Drs. Kareem Nguyen, Wen Torres, Lucas You and colleagues, with an educational ryan from [employer]. Thrive Questionnaire Date Thrive assessed: 06/30/24 I am a: Patient What is your living situation today?: I have a steady place to live Within the past 12 months, did the food you bought not last and you didn't have the money to get more?: Never true Within the past 12 months, did you worry whether your food would run out before you got money to buy more?: Never true Do you have trouble paying for medicines?: No Do you have trouble getting transportation to medical appointments?: No Do you have trouble paying your heating and electricity bill?: No Do you have trouble taking care of your child, family member or friend?: No Do you have trouble with day-to-day activities such as bathing, preparing meals, shopping, managing finances, etc.?: No Are you currently unemployed and looking for a job?: No Are you interested in more education?: No Please select the resources that you would like help with: None Currently or been in a relationship where the following occur: No concerns reported THRIVE Score: 0 AUDIT C Alcohol Use Questionnaire (AUDIT-C) 1. How often do you have a drink containing alcohol?: 2-3 times a week 2. How many drinks containing alcohol do you have on a typical day when you are drinking?: 5 or 6 3. How often do you have six or more drinks on one occasion?: Never Total Score: 5 VANESSA-7 AMB Questionnaire VANESSA-7 Date VANESSA - 7 assessed: 06/30/24 Feeling nervous, anxious, or on edge: 1 = Several days Not being able to stop or control worryin = Not at all Worrying too much about different things: 0 = Not at all Trouble relaxin = Not at all Being so restless that it is hard to sit still: 0 = Not at all Becoming easily annoyed or irritable: 0 = Not at all Feeling afraid as if something awful might happen: 0 = Not at all Total VANESSA-7 score (0-4 normal; 5-9 mild; 10-14 moderate; 15-21 severe): 1 Source: Developed by Drs. Kareem Nguyen, Wen Torres, Lucas You and colleagues, with an educational ryan from [employer]. VANESSA-7 Assessment Billing VANESSA-7 Assessment Tool: VANESSA-7 Assessment 74178 Physical exam (Primary Care) Vital Signs: Last Vital Signs Temp 97.3 F 06/30/24 12:41 Pulse 78 06/30/24 12:41 BP 122/86 06/30/24 12:41 Pulse Ox 95 06/30/24 12:41 Oxygen Delivery Method Room Air 06/30/24 12:41 BMI result Body Mass Index 28.8 Tobacco/Smoking Status: Tobacco use Status Tobacco use date assessed 04/21/24 06/30/24 12:40 Patient Tobacco Use Status Current everyday Tobacco 06/30/24 12:40 Tobacco use type Cigarette 06/30/24 12:40 e-Cigarette/Vaping Use Never Used 06/30/24 12:40 PHQ-9: PHQ-9 Score PHQ-9: Total score 0 06/30/24 12:40 Depression Screening Interpretation: Negative Thrive Assessment: Date of Thrive Assessment Date Thrive assessed 06/30/24 06/30/24 12:40 Currently or been in a relationship where the following occur: No concerns reported Const General: alert; No acute distress Eyes Conjunctivae: conjunctivae normal Resp Auscultation: clear to auscultation bilaterally Cardio Rate: regular rate Rhythm: regular rhythm GI Inspection: Yes normal to inspection Extrem General: Yes normal to inspection and No edema Coding Level of Care Code Est Pt Level 4 (28394) Complex EM visit Add On G2211 Diagnoses Hepatic steatosis K76.0 Alcohol abuse F10.10 Impaired glucose tolerance R73.02 Tobacco abuse Z72.0 Gastroesophageal reflux disease without esophagitis K21.9 Esophagitis presence: without esophagitis Overweight (BMI 25.0-29.9) E66.3 Coronary artery disease involving [place] coronary artery of [place] heart without angina pectoris I25.10 Coronary Disease-Associated Artery/Lesion type: [place] artery [place] vs. transplanted heart: [place] heart Associated angina: without angina HTN (hypertension), benign I10 Mixed hyperlipidemia E78.2 Hyperlipidemia type: mixed hyperlipidemia Penile lesion N48.9 Bilateral hip pain M25.551; M25.552 Additional Codes VANESSA-7 Assessment Billing - VANESSA-7 Assessment Tool: VANESSA-7 Assessment [id number] ([id number]) PHQ-9 - 73699 - PHQ-9 Billing: Yes ([id number]) Assessment & Plan Assessment & Plan (1) Hepatic steatosis: Comment: May 2024 Code(s): K76.0 - Fatty (change of) liver, not elsewhere classified Category: Medical Plan: Low-fat diet and exercise (2) Alcohol abuse: Code(s): F10.10 - Alcohol abuse, uncomplicated Category: Social Hx Plan: Patient is strongly advised to stop! (3) Impaired glucose tolerance: Code(s): R73.02 - Impaired glucose tolerance (oral) Category: Medical Plan: Decrease the amount of carbohydrate intake, pasta, bread, rice and potatoes are all sugar and that is aside from all the sweet stuff, remember that fruits are good but they are Sweet also. Because the fasting blood sugar is on the diabetes wade we will repeat the fasting blood sugar. It is controlled though with a hemoglobin A1c of 5.8 (4) Tobacco abuse: Code(s): Z72.0 - Tobacco use Category: Medical Plan: Patient is strongly advised to stop smoking! (5) GERD (gastroesophageal reflux disease): Code(s): K21.9 - Gastro-esophageal reflux disease without esophagitis Category: Medical Qualifiers: Esophagitis presence: without esophagitis Qualified Code(s): K21.9 - Gastro-esophageal reflux disease without esophagitis Plan: Stop smoking! Avoid the foods that causes that usually spicy foods, tomato products, juices, coffee, soda and foods that your sensitive to. After eating do not lie down, allow 3-4 hours before in lie down. And keep the head of bed above 30 degrees to avoid the acid from going up. (6) Overweight (BMI 25.0-29.9): Code(s): E66.3 - Overweight Category: Medical Plan: Diet and exercise (7) CAD (coronary artery disease): Comment: [place] [address]. eGrardo stent placement LAD Code(s): I25.10 - Atherosclerotic heart disease of [place] coronary artery without angina pectoris Category: Medical Qualifiers: Coronary Disease-Associated Artery/Lesion type: [place] artery [place] vs. transplanted heart: [place] heart Associated angina: without angina Qualified Code(s): I25.10 - Atherosclerotic heart disease of [place] coronary artery without angina pectoris Plan: Control the cholesterol, weight, blood pressure, on aspirin (8) HTN (hypertension), benign: Code(s): I10 - Essential (primary) hypertension Category: Medical Plan: Continue with blood pressure medication. Decrease salt intake and exercise takes nebivolol 2.5 mg once a day (9) Hyperlipidemia: Code(s): E78.5 - Hyperlipidemia, unspecified Category: Medical Qualifiers: Hyperlipidemia type: mixed hyperlipidemia Qualified Code(s): E78.2 - Mixed hyperlipidemia Plan: Avoid fried foods, chicken skin, eggs, butter margarine, pastries and meat. Be it pork or beef they have a lot of cholesterol LDL goal of less than 70 and triglyceride of less than 150. (10) Penile lesion: Comment: 06/2024 1 cm mass underneath the penis Code(s): N48.9 - Disorder of penis, unspecified Category: Medical Plan: urology referral done (11) Bilateral hip pain: Code(s): M25.551 - Pain in right hip; M25.552 - Pain in left hip Category: Medical Plan History of Present Illness The patient is a 54-year-old male presenting with multiple ongoing health concerns, including hypertension, hypercholesterolemia, coronary artery disease, and GERD, coupled with impaired glucose tolerance and nonalcoholic fatty liver disease. His fasting blood sugar is 126, and he manages diabetes with a controlled hemoglobin A1c level at 5.8, without current medication intervention. He was recently identified as having elevated liver function tests with ultrasound confirming fatty liver changes while monitoring for potential cirrhosis due to alcohol abuse. The patient was advised on lifestyle improvements, including diet and exercise, to address obesity and the fatty liver condition. The patient reports a persisting, unchanged lump on his penis for more than six months and worsening pain in both hips exacerbated after tendon repair. X-rays and a urology referral were advised to evaluate these concerns. Health Maintenance - Smoking cessation advised repeatedly to prevent exacerbation of cardiovascular and pulmonary complications. - Dietary advice provided to support management of fatty liver and elevated glucose levels. - Fasting blood sugar levels to be retested to evaluate for diabetes. - Encouragement of a low-fat diet and increased physical activity for weight reduction and better health outcomes. - Referral to urology for penile lump and assessment of hip pain through X-ray. Social History - Smoker currently, strongly advised to quit. - Alcohol abuse noted, contributing to hepatic steatosis. - Patient is overweight and requires lifestyle changes, including a healthier diet and regular exercise. - Manages medications through pharmacy reminders. Review of Systems - General: Reports persistent obesity. - Cardiovascular: Denies acute discomfort. - Gastrointestinal: Reports GERD. - Endocrine: Reports impaired glucose tolerance. - Neurological: Denies neurological symptoms. - Musculoskeletal: Reports bilateral hip pain. - Genitourinary: Reports lump on the penis. - Psychiatric: History of generalized anxiety disorder. Physical Exam Results - Labs: Fasting blood sugar elevated at 126. LDL at 66. Triglycerides elevated at 162. Normal hemoglobin A1c at 5.8. B12 levels noted to be low. Negative hepatitis profile. - Tests: Ultrasound of the abdomen exhibiting hepatic steatosis. Plan A follow-up is recommended with a significant focus on lifestyle modifications, including smoking cessation and dietary adjustments to address weight and maintain cardiovascular health. I will repeat fasting blood sugar testing to monitor diabetes status. Urology referral for detailed evaluation of the penile lump and x-rays for hip pain assessment have been arranged. Continued coordination with the pharmacy for medication management is also necessary, with ongoing monitoring and follow-up appointments to address these chronic conditions. Patient was informed and verbally consented to the use of an ambient scribe for clinic note documentation during this visit. Discussion Notes I discussed with the patient the imperative need to stop smoking to prevent further health deterioration related to cardiovascular and respiratory health. We reviewed dietary and exercise interventions necessary to manage both weight and the progression of liver disease. I explained the importance of monitoring fasting blood sugar closely due to potential diabetes. We discussed the need for referral to urology concerning penile lump evaluation and will conduct hip X- rays to clarify the source of bilateral pain. Laboratory results were reviewed, clarifying current management directions and future testing needs. Patient Instructions - Quit smoking immediately to improve health. - Follow a low-fat diet and exercise regularly to manage weight. - Schedule a blood test for fasting blood sugar. - Expect a call from urology for an appointment for lump evaluation. - Undergo X-rays for hip assessment at your convenience. - Monitor for any new symptoms and follow up regularly. Orders: Orders XR hip BI w PEL1V Today M25.551 - Pain in right hip, M25.552 - Pain in left hip Referrals Urology Referral N48.9 - Disorder of penis, unspecified
[2024-06-30 12:41] VITALS: BP 122/86; PULSE 78; TEMP 36.3; O2SAT 95; BMI 28.8
== END 2024-06-30 13:01 | disposition home or self-care (01) ==
LOC: HO.HMCH 12:35
PROVIDERS: PCP Internal Medicine; Visit Provider Internal Medicine
DX: K76.0 Fatty (change of) liver, not elsewhere classified (principal); F10.10 Alcohol abuse, uncomplicated; R73.02 Impaired glucose tolerance (oral); Z72.0 Tobacco use; K21.9 Gastro-esophageal reflux disease without esophagitis; E66.3 Overweight; I25.10 Atherosclerotic heart disease of native coronary artery without angina pectoris; I10 Essential (primary) hypertension; E78.2 Mixed hyperlipidemia; N48.9 Disorder of penis, unspecified; M25.551 Pain in right hip; M25.552 Pain in left hip

== ENCOUNTER → 2024-06-30 12:33 | Outpatient (BNVA) | payer OTHER, SELFPAY | PROVIDERS: PCP Internal Medicine; Visit Provider Internal Medicine | DX: K76.0 Fatty (change of) liver, not elsewhere classified (principal); F10.10 Alcohol abuse, uncomplicated; R73.02 Impaired glucose tolerance (oral); K21.9 Gastro-esophageal reflux disease without esophagitis; E66.3 Overweight; I25.10 Atherosclerotic heart disease of native coronary artery without angina pectoris; I10 Essential (primary) hypertension; N48.9 Disorder of penis, unspecified; M25.551 Pain in right hip; M25.552 Pain in left hip; F17.210 Nicotine dependence, cigarettes, uncomplicated; Z71.6 Tobacco abuse counseling | CPT/HCPCS: 96127 ==

== ENCOUNTER 2024-07-04 13:12 | Outpatient (AMB) | payer OTHER, SELFPAY ==
[2024-07-04 13:15] VITALS: BP 120/80; PULSE 76; BMI 62.3
--- NOTE | 2024-07-04 13:15 | A.OFFVIS_ITS ---
Vital Signs 07/04/24 13:15 Height 5 ft 8 in Weight 410 lb 0.957 oz BMI 62.3 BP 120/80 Blood Pressure Location Lt brachial Position Sitting Pulse 76 Intake Visit Reasons: 1 yr f/up Intake Note: 1 year follow-up with ekg feeling good Pad Machine Feeder Required: No Allergies No Known Allergies Allergy (Verified 06/30/24 12:37) Medication List - Last Reconciled 07/04/24 by Bill Gerardo MD alprazolam 0.25 mg PO DAILY PRN aspirin (Adult Low Dose Aspirin) 81 mg PO DAILY ezetimibe 10 mg PO DAILY famotidine 40 mg PO BEDTIME fenofibrate nanocrystallized 145 mg PO DAILY nebivolol 2.5 mg PO DAILY rosuvastatin 40 mg PO DAILY sildenafil 100 mg PO DAILY PRN 10 days HPI Comments Details: Vance comes for follow-up. He has been doing very well from cardiac perspective. He remains very active in his work and walks a lot and has no exertional chest pain or shortness of breath. Denies any prolonged palpitation irregular heartbeat. No heart failure symptoms. Blood pressure is well controlled on current medications. Last LDL of 66 with well controlled triglycerides on current medications. He said he is very compliant with medications. Unfortunately has started smoking a little bit. Denies any significant alcohol use. [facility] Medical History LFT elevation Internal hemorrhoids without complication Tubular adenoma Colon cancer screening Impaired glucose tolerance COVID-19 virus infection Polysubstance abuse Erectile dysfunction Anxiety Tobacco abuse Alcohol abuse GERD (gastroesophageal reflux disease) Vitamin D deficiency Vitamin B12 deficiency Overweight (BMI 25.0-29.9) Epidermal inclusion cyst Hand injury CAD (coronary artery disease) Hyperlipidemia HTN (hypertension), benign Surgical History History of left inguinal hernia repair (~12/07/23) Hx of colonoscopy History of coronary artery stent placement History of removal of cyst History of adenoidectomy History of nasal surgery Family History Mother Myocardial infarct Father Myocardial infarct Social History Housing: House Are you a primary career [employer]als teacher to a significant other at home: No Do you presently have visiting nurse or other home services: No Alcohol intake: former Comment: stopped 09/22/2022!! Patient Tobacco Use Status: Current everyday Tobacco user Tobacco use type: Cigarette Cigarette Packs Per Day: 0.5 Cigarettes Per Day: 5 Years Smoked: 25 +/- e-Cigarette/Vaping Use: Never Used Second Hand Smoke Exposure: Yes service: No Current occupational status: employed Cognitive needs: No Hearing needs: No Vision needs: Yes Review of Systems Const Denies chills, Denies fatigue, Denies fever(s), Denies frequent falls, Denies weakness, Denies weight gain and Denies weight loss ENT Denies dizziness Card Denies chest pain, Denies leg edema, Denies lightheadedness, Denies palpitations, Denies dyspnea, Denies dyspnea on exertion, Denies orthopnea and Denies other (loss of consciousness) Resp Denies cough, Denies dyspnea and Denies dyspnea on exertion GI Denies hematochezia and Denies change in stool character Musc Denies abnormal gait, Denies muscle weakness, Denies numbness, Denies radiating pain into limb and Denies tingling Neuro Denies abnormal gait, Denies dizziness, Denies frequent falls, Denies numbness, Denies tingling and Denies weakness Endo Denies fatigue and Denies palpitations Physical Exam Vital Signs: Last Vital Signs Pulse 76 07/04/24 13:15 BP 120/80 07/04/24 13:15 BMI result Body Mass Index 62.3 Const General: cooperative, healthy appearing, comfortable, no acute distress, well de veloped, alert and awake Nutritional Appearance: overweight Orientation/consciousness: patient oriented x3 Limitations: no limitations HEENT Head: Yes normal to inspection, Yes normocephalic and Yes atraumatic Eyes General: appearance normal, both eyes and all related structures Neck Neck: Yes normal visual inspection, Yes trachea midline and Yes no JVD Carotids: other ( No carotid bruit) Chest Chest palpation & inspection: normal inspection of the chest Resp Effort & Inspection: normal respiratory effort Auscultation: clear to auscultation bilaterally Cardio Jugular venous distension: no JVD Palpation: normal PMI Rate: regular rate Rhythm: regular rhythm Heart sounds: S1 normal heart sound present, S2 normal heart sound present and Other heart sounds present ( soft S4) Peripheral pulses: Peripheral pulses 2+ throughout GI Inspection: Yes normal to inspection Auscultation: normal bowel sounds Skin General skin exam: no rashes or lesions noted, elasticity normal and turgor normal Neuro General: patient oriented x3 and no focal motor deficits Extrem General: Yes no clubbing, cyanosis or edema Psych Appearance: grossly normal Mental Status: mental status grossly normal Office Procedures EKG Details: EKG shows normal sinus rhythm with normal EKG [id number], Complete Assessment & Plan Assessment & Plan (1) CAD (coronary artery disease): Comment: [place] [address] Dr. Gerardo stent placement LAD Code(s): I25.10 - Atherosclerotic heart disease of [place] coronary artery without angina pectoris Category: Medical Qualifiers: Coronary Disease-Associated Artery/Lesion type: [place] artery [place] vs. transplanted heart: [place] heart Associated angina: without angina Qualified Code(s): I25.10 - Atherosclerotic heart disease of [place] coronary artery without angina pectoris Plan: CAD with premature presentation with STEMI in 2008 with LAD stenting with bare metal stent. At that time he had also cocaine use. He is currently well optimized with risk factor modification. Continue low-dose aspirin therapy for life. Continue aggressive blood pressure control which is currently well optimized encouraged to maintain activity level as tolerated. Complete smoking cessation was advised. He is working on it. He did not tolerate Chantix ther apy in the past. Continue current triple anti lipid therapy with high-intensity statin, ezetimibe and fenofibrate. (2) HTN (hypertension), benign: Code(s): I10 - Essential (primary) hypertension Category: Medical Plan: Hypertension which is currently well optimized on low-dose nebivolol therapy. Recommend to continue the same. Stress mitigation strategies was discussed. Low-salt diet was discussed. Continue participate in regular physical activity and weight loss program. Will follow up in the clinic in 1 year's time, sooner p.r.n.. Thank you for allowing me to partake in his care Coding Level of Care Code Est Pt Level 4 (76862) Complex EM visit Add On G2211 Diagnoses Coronary artery disease involving [place] coronary artery of [place] heart without angina pectoris I25.10 Coronary Disease-Associated Artery/Lesion type: [place] artery [place] vs. transplanted heart: [place] heart Associated angina: without angina HTN (hypertension), benign I10 CPT Codes EKG - CPT: 44246-[id number], Complete ([id number])
== END 2024-07-04 13:40 | disposition home or self-care (01) ==
LOC: HO.HCS 13:12
PROVIDERS: PCP Internal Medicine; Visit Provider Internal Medicine Cardiovascular Disease
DX: I25.10 Atherosclerotic heart disease of native coronary artery without angina pectoris (principal); I10 Essential (primary) hypertension
CPT/HCPCS: 93010; 99214

== ENCOUNTER → 2024-07-04 13:12 | Outpatient (BNVA) | payer OTHER, SELFPAY | PROVIDERS: PCP Internal Medicine; Visit Provider Internal Medicine Cardiovascular Disease | DX: I25.10 Atherosclerotic heart disease of native coronary artery without angina pectoris (principal) | CPT/HCPCS: 93005 ==

== ENCOUNTER 2024-07-25 07:06 | Outpatient (REF) | payer OTHER, SELFPAY ==
[2024-07-25 07:57] LABS: Estimated Average Glucose 126 mg/dL; Hemoglobin A1C 163.4221 umol/L; Total Hemoglobin (HGBA1C) 3903.8707 umol/L
[2024-07-25 08:12] LABS: Alanine Aminotransferase 74 U/L (0-40); Albumin Level 4.8 g/dL (3.5-5.0); Alkaline Phosphatase 65 U/L (39-117); Anion Gap 11 (12-20); Aspartate Amino Transferase 67 U/L (5-37); Bilirubin Total 0.5 mg/dL (0.0-1.0); Blood Urea Nitrogen 8 mg/dL (9-16); Calcium 9.3 mg/dL (8.4-10.2); Carbon Dioxide 27 mmol/L (22-29); Chloride 111 mmol/L (96-108); Estimated Glomerular Filt Rate > 60; Glucose Random 116 mg/dL (60-115); Potassium 4.2 mmol/L (3.3-5.1); Sodium 145 mmol/L (135-145); Total Protein 6.9 g/dL (6.5-8.0)
== END 2024-07-25 07:07 | disposition home or self-care (01) ==
LOC: HO.LAB 07:06
PROVIDERS: PCP Internal Medicine; Visit Provider Internal Medicine
DX: I25.10 Atherosclerotic heart disease of native coronary artery without angina pectoris (principal); Z13.1 Encounter for screening for diabetes mellitus
CPT/HCPCS: 36415; 80053; 83036

== ENCOUNTER 2024-07-28 12:19 | Outpatient (AMB) | payer OTHER, SELFPAY ==
--- NOTE | 2024-07-28 12:36 | A.OFFPC_ITS ---
Vital Signs 07/28/24 12:37 Height 5 ft 8 in Weight 190 lb 2 oz BMI 28.9 BP 122/80 Blood Pressure Location Lt brachial Position Sitting Pulse 76 Pulse Source Pulse Oximeter Temp 97.5 F Temp Source Temporal Artery Scan Pulse Oximetry (%) 96 Oxygen Delivery Method Room Air Intake Visit Reasons: IGT, CAD Intake Note: Patient is here to follow up on IGT, CAD. Campus Security Officer Required: No Prenatal Genetic Counselor: Not Required per policy Accompanied by: Self / Same As Patient Allergies No Known Allergies Allergy (Verified 07/28/24 12:37) Medication List - Last Reconciled 07/28/24 by Kaela Greene MD alprazolam 0.25 mg PO DAILY PRN aspirin (Adult Low Dose Aspirin) 81 mg PO DAILY ezetimibe 10 mg PO DAILY famotidine 40 mg PO BEDTIME fenofibrate nanocrystallized 145 mg PO DAILY nebivolol 2.5 mg PO DAILY rosuvastatin 40 mg PO DAILY sildenafil 100 mg PO DAILY PRN 10 days Tobacco use date assessed: 07/28/24 Dental Screening Dental Screen Date: 06/30/24 [facility] Medical History LFT elevation Internal hemorrhoids without complication Tubular adenoma Colon cancer screening Impaired glucose tolerance COVID-19 virus infection Polysubstance abuse Erectile dysfunction Anxiety Tobacco abuse Alcohol abuse GERD (gastroesophageal reflux disease) Vitamin D deficiency Vitamin B12 deficiency Overweight (BMI 25.0-29.9) Epidermal inclusion cyst Hand injury CAD (coronary artery disease) Hyperlipidemia HTN (hypertension), benign Surgical History History of left inguinal hernia repair (~12/07/23) Hx of colonoscopy History of coronary artery stent placement History of removal of cyst History of adenoidectomy History of nasal surgery Family History Mother Myocardial infarct Father Myocardial infarct Social History (Updated 07/28/24 @ 12:42 by CASSIE Lozano) Housing: House Are you a primary direct care professional to a significant other at home: No Do you presently have visiting nurse or other home services: No Alcohol intake: current Alcohol intake frequency: holidays/special occasions only Comment: stopped 09/22/2022!! Patient Tobacco Use Status: Current everyday Tobacco user Tobacco use type: Cigarette Cigarette Packs Per Day: 0.5 Cigarettes Per Day: 10 Years Smoked: 25 +/- e-Cigarette/Vaping Use: Never Used Second Hand Smoke Exposure: Yes service: No Current occupational status: employed Cognitive needs: No Hearing needs: No Vision needs: Yes Questionnaire Thrive Questionnaire Date Thrive assessed: 06/30/24 I am a: Patient What is your living situation today?: I have a steady place to live Within the past 12 months, did the food you bought not last and you didn't have the money to get more?: Never true Within the past 12 months, did you worry whether your food would run out before you got money to buy more?: Never true Do you have trouble paying for medicines?: No Do you have trouble getting transportation to medical appointments?: No Do you have trouble paying your heating and electricity bill?: No Do you have trouble taking care of your child, family member or friend?: No Do you have trouble with day-to-day activities such as bathing, preparing meals, shopping, managing finances, etc.?: No Are you currently unemployed and looking for a job?: No Are you interested in more education?: No Please select the resources that you would like help with: None Currently or been in a relationship where the following occur: No concerns reported THRIVE Score: 0 VANESSA-7 AMB Questionnaire VANESSA-7 Date VANESSA - 7 assessed: 06/30/24 Source: Developed by Drs. Kareem Nguyen, Wen Torres, Lucas You and colleagues, with an educational ryan from [employer]. Physical exam (Primary Care) Vital Signs: Last Vital Signs Temp 97.5 F 07/28/24 12:37 Pulse 76 07/28/24 12:37 BP 122/80 07/28/24 12:37 Pulse Ox 96 07/28/24 12:37 Oxygen Delivery Method Room Air 07/28/24 12:37 BMI result Body Mass Index 28.9 Tobacco/Smoking Status: Tobacco use Status Tobacco use date assessed 07/28/24 07/28/24 12:37 Patient Tobacco Use Status Current everyday Tobacco 07/28/24 12:42 Tobacco use type Cigarette 07/28/24 12:42 e-Cigarette/Vaping Use Never Used 07/28/24 12:42 Thrive Assessment: Date of Thrive Assessment Date Thrive assessed 06/30/24 07/28/24 12:37 Currently or been in a relationship where the following occur: No concerns reported Const General: alert; No acute distress Eyes Conjunctivae: conjunctivae normal Resp Auscultation: clear to auscultation bilaterally Cardio Rate: regular rate Rhythm: regular rhythm GI Inspection: Yes normal to inspection Extrem General: Yes normal to inspection and No edema Coding Level of Care Code Est Pt Level 4 (17807) Complex EM visit Add On G2211 Diagnoses Hepatic steatosis K76.0 Impaired glucose tolerance R73.02 Tobacco abuse Z72.0 Coronary artery disease involving [place] coronary artery of [place] heart without angina pectoris I25.10 Associated angina: without angina Coronary Disease-Associated Artery/Lesion type: [place] artery [place] vs. transplanted heart: [place] heart HTN (hypertension), benign I10 Mixed hyperlipidemia E78.2 Hyperlipidemia type: mixed hyperlipidemia Overweight (BMI 25.0-29.9) E66.3 Gastroesophageal reflux disease without esophagitis K21.9 Esophagitis presence: without esophagitis Assessment & Plan Assessment & Plan (1) Hepatic steatosis: Comment: May 2024 Code(s): K76.0 - Fatty (change of) liver, not elsewhere classified Category: Medical Plan: Low-fat diet and exercise (2) Impaired glucose tolerance: Code(s): R73.02 - Impaired glucose tolerance (oral) Category: Medical Plan: Decrease the amount of carbohydrate intake, pasta, bread, rice and potatoes are all sugar and that is aside from all the sweet stuff, remember that fruits are good but they are Sweet also. With hemoglobin A1c rising (3) Tobacco abuse: Code(s): Z72.0 - Tobacco use Category: Medical Plan: Patient is strongly advised to stop smoking (4) CAD (coronary artery disease): Comment: [place] [address] Dr. Gerardo stent placement LAD Code(s): I25.10 - Atherosclerotic heart disease of [place] coronary artery without angina pectoris Category: Medical Qualifiers: Associated angina: without angina Coronary Disease-Associated Artery/Lesion type: [place] artery [place] vs. transplanted heart: [place] heart Qualified Code(s): I25.10 - Atherosclerotic heart disease of [place] coronary artery without angina pectoris Plan: Patient is advised to strongly stop smoking, Control the cholesterol, weight, blood pressure, (5) HTN (hypertension), benign: Code(s): I10 - Essential (primary) hypertension Category: Medical Plan: Continue with blood pressure medication. Decrease salt intake and exercise presently on nebivolol 2.5 mg once a day (6) Hyperlipidemia: Code(s): E78.5 - Hyperlipidemia, unspecified Category: Medical Qualifiers: Hyperlipidemia type: mixed hyperlipidemia Qualified Code(s): E78.2 - Mixed hyperlipidemia Plan: Avoid fried foods, chicken skin, eggs, butter margarine, pastries and meat. Be it pork or beef they have a lot of cholesterol patient is on fenofibrate Zetia and rosuvastatin (7) Overweight (BMI 25.0-29.9): Code(s): E66.3 - Overweight Category: Medical Plan: Continue with diet and exercise (8) GERD (gastroesophageal reflux disease): Code(s): K21.9 - Gastro-esophageal reflux disease without esophagitis Category: Medical Qualifiers: Esophagitis presence: without esophagitis Qualified Code(s): K21.9 - Gastro-esophageal reflux disease without esophagitis Plan: Avoid the foods that causes that usually spicy foods, tomato products, juices, coffee, soda and foods that your sensitive to. After eating do not lie down, allow 3-4 hours before in lie down. And keep the head of bed above 30 degrees to avoid the acid from going up. Plan History of Present Illness The patient is a 54-year-old male presenting for a follow-up visit. The patient has a history of hypertension, hypercholesterolemia, and coronary artery disease. He was last seen by cardiology in June 2024 for follow-up. The patient is currently on nebivolol 2.5 mg once daily for blood pressure management. The patient has impaired glucose tolerance with a hemoglobin A1c of 6.0, indicating prediabetes. His fasting blood sugar was 126 in April and improved to 116 in July. Dietary modifications have been discussed, focusing on reducing carbohydrate intake. The patient has hepatic steatosis, confirmed by ultrasound, with elevated liver function tests. Lifestyle changes, including a low-fat diet and exercise, have been recommended to manage this condition. The patient has a history of anxiety disorder and alcohol abuse. He is currently managing his anxiety with medication as needed. The patient has resumed smoking, which is a concern given his coronary artery disease. Smoking cessation has been strongly advised, and the patient has been counseled on the risks associated with continued smoking. Health Maintenance - Colonoscopy up to date as of March 2022 - Shingles vaccination discussed, patient received second shot recently - Advised on low-fat diet and regular exercise for hepatic steatosis management - Smoking cessation strongly advised Social History - Smoking: Patient has resumed smoking, cessation strongly advised - Alcohol: History of alcohol abuse - Diet: Advised on low-fat diet and reducing carbohydrate intake Review of Systems - Cardiovascular: Denies chest pain, orthopnea, or syncope - Gastrointestinal: Reports normal bowel movements, denies constipation or diarrhea - Genitourinary: Denies dysuria, reports nocturia once per night - Neurological: Denies headaches, dizziness, or balance issues Physical Exam Results - Labs: Hemoglobin A1c 6.0, fasting blood sugar 116 mg/dL - Labs: Liver function tests elevated - Imaging: Ultrasound confirms hepatic steatosis - Labs: LDL cholesterol 66 mg/dL, vitamin B12 slightly low at 270 Plan The patient will continue with nebivolol 2.5 mg once daily for hypertension management. For hypercholesterolemia, the patient is on fenofibrate, ezetimibe, and rosuvastatin, with a focus on maintaining a low-fat diet and regular exercise. The patient's impaired glucose tolerance will be monitored with a repeat hemoglobin A1c test in six months. Dietary modifications to reduce carbohydrate intake have been advised to manage prediabetes. Hepatic steatosis management includes lifestyle changes such as a low-fat diet and exercise. The patient is advised to avoid alcohol to prevent further liver damage. Smoking cessation is strongly recommended, and the patient has been counseled on the associated risks. The patient is encouraged to explore alternative methods to quit smoking, given the adverse effects experienced with previous cessation aids. Patient was informed and verbally consented to the use of an ambient scribe for clinic note documentation during this visit. Discussion Notes During the visit, I discussed the importance of managing hypertension, hypercholesterolemia, and impaired glucose tolerance through medication and lifestyle changes. We reviewed the patient's recent lab results, noting the need for dietary modifications to address prediabetes and hepatic steatosis. I emphasized the critical need for smoking cessation, given the patient's coronary artery disease, and discussed alternative cessation methods due to previous adverse reactions to medications. Patient Instructions - Continue taking nebivolol 2.5 mg daily for blood pressure. - Maintain a low-fat diet and regular exercise to manage cholesterol and liver health. - Monitor blood sugar levels and follow dietary recommendations to manage prediabetes. - Strongly advised to quit smoking and explore alternative cessation methods. - Schedule a follow-up appointment in six months for repeat hemoglobin A1c testing. Orders: Orders Complete Blood Count Auto Diff 6 Months R73.02 - Impaired glucose tolerance (oral) Vitamin B12 and Folate 6 Months R73.02 - Impaired glucose tolerance (oral) Comprehensive Met. Panel 6 Months R73.02 - Impaired glucose tolerance (oral) Hemoglobin A1c 6 Months R73.02 - Impaired glucose tolerance (oral) Lipid Panel 6 Months E78.00 - Pure hypercholesterolemia, unspecified, R73.02 - Impaired glucose tolerance (oral) Medications: Refilled alprazolam 0.25 mg PO DAILY PRN 14 tabs 0RF anxiety F41.1 - Generalized anxiety disorder
[2024-07-28 12:37] VITALS: BP 122/80; PULSE 76; TEMP 36.4; O2SAT 96; BMI 28.9
== END 2024-07-28 12:57 | disposition home or self-care (01) ==
LOC: HO.HMCH 12:20
PROVIDERS: PCP Internal Medicine; Visit Provider Internal Medicine
DX: K76.0 Fatty (change of) liver, not elsewhere classified (principal); R73.02 Impaired glucose tolerance (oral); Z72.0 Tobacco use; I25.10 Atherosclerotic heart disease of native coronary artery without angina pectoris; I10 Essential (primary) hypertension; E78.2 Mixed hyperlipidemia; E66.3 Overweight; K21.9 Gastro-esophageal reflux disease without esophagitis

== ENCOUNTER → 2024-07-28 12:19 | Outpatient (BNVA) | payer OTHER, SELFPAY | PROVIDERS: PCP Internal Medicine; Visit Provider Internal Medicine | DX: Z13.89 Encounter for screening for other disorder (principal) ==

== ENCOUNTER 2024-11-01 14:15 | Outpatient (AMB) | payer OTHER, SELFPAY ==
[2024-11-01 14:19] VITALS: BP 132/82; PULSE 89; O2SAT 98; BMI 28.4
--- NOTE | 2024-11-01 14:19 | A.OFFPC_ITS ---
Vital Signs 11/01/24 14:19 Height 5 ft 8 in Weight 187 lb BMI 28.4 BP 132/82 Blood Pressure Location Lt brachial Position Sitting Pulse 89 Pulse Source Pulse Oximeter Pulse Oximetry (%) 98 Oxygen Delivery Method Room Air Intake Visit Reasons: Annual Exam Allergies No Known Allergies Allergy (Verified 11/01/24 14:19) Medication List - Last Reconciled 11/01/24 by Kaela Greene MD alprazolam 0.25 mg PO DAILY PRN aspirin (Adult Low Dose Aspirin) 81 mg PO DAILY ezetimibe 10 mg PO DAILY famotidine 40 mg PO BEDTIME fenofibrate nanocrystallized 145 mg PO DAILY nebivolol 2.5 mg PO DAILY rosuvastatin 40 mg PO DAILY sildenafil 100 mg PO DAILY PRN 10 days Tobacco use date assessed: 07/28/24 Dental Screening Dental Screen Date: 06/30/24 HPI Annual Exam HPI Details R hearing decreased PFSH Medical History LFT elevation Internal hemorrhoids without complication Tubular adenoma Colon cancer screening Impaired glucose tolerance COVID-19 virus infection Polysubstance abuse Erectile dysfunction Anxiety Tobacco abuse Alcohol abuse GERD (gastroesophageal reflux disease) Vitamin D deficiency Vitamin B12 deficiency Overweight (BMI 25.0-29.9) Epidermal inclusion cyst Hand injury CAD (coronary artery disease) Hyperlipidemia HTN (hypertension), benign Surgical History History of left inguinal hernia repair (~12/07/23) Hx of colonoscopy History of coronary artery stent placement History of removal of cyst History of adenoidectomy History of nasal surgery Family History Mother Myocardial infarct Father Myocardial infarct Social History (Updated 11/01/24 @ 14:44 by Kaela Greene MD) Housing: House Are you a primary transitions rn care coordinator to a significant other at home: No Do you presently have visiting nurse or other home services: No Alcohol intake: current Alcohol intake frequency: holidays/special occasions only Comment: stopped 09/22/2022!! Patient Tobacco Use Status: Current everyday Tobacco user Tobacco use type: Cigarette Cigarette Packs Per Day: 0.5 Cigarettes Per Day: 10 Years Smoked: 25 +/- cutting - 1 pack 3 days 10/2024 e-Cigarette/Vaping Use: Never Used Second Hand Smoke Exposure: Yes service: No Current occupational status: employed Cognitive needs: No Hearing needs: No Vision needs: Yes Questionnaire PHQ-9 Over the last 2 weeks, how often have you been bothered by any of the following problems? 1. Little interest or pleasure in doing things: not at all 2. Feeling down, depressed, or hopeless: not at all 3. Trouble falling or staying asleep, or sleeping too much: not at all 4. Feeling tired or having little energy: not at all 5. Poor appetite or overeating: not at all 6. Feeling bad about yourself - or that you are a failure or have let yourself or your family down: not at all 7. Trouble concentrating on things, such as reading the newspaper or watching television: not at all 8. Moving or speaking so slowly that other people could have noticed. Or the opposite - being so fidgety or restless that you have been moving around a lot more than usual: not at all 9. Thoughts that you would be better off or of hurting yourself in some way: not at all Total score: 0 Depression Screening Interpretation: Negative Depression Screening Done: Yes Source: Developed by Drs. Kareem Nguyen, Wen Torres, Lucas You and colleagues, with an educational ryan from [employer]. Thrive Questionnaire Date Thrive assessed: 06/30/24 I am a: Patient What is your living situation today?: I have a steady place to live Within the past 12 months, did the food you bought not last and you didn't have the money to get more?: Never true Within the past 12 months, did you worry whether your food would run out before you got money to buy more?: Never true Do you have trouble paying for medicines?: No Do you have trouble getting transportation to medical appointments?: No Do you have trouble paying your heating and electricity bill?: No Do you have trouble taking care of your child, family member or friend?: No Do you have trouble with day-to-day activities such as bathing, preparing meals, shopping, managing finances, etc.?: No Are you currently unemployed and looking for a job?: No Are you interested in more education?: No Please select the resources that you would like help with: None Currently or been in a relationship where the following occur: No concerns reported THRIVE Score: 0 AUDIT C Alcohol Use Questionnaire (AUDIT-C) 1. How often do you have a drink containing alcohol?: 2-3 times a week 2. How many drinks containing alcohol do you have on a typical day when you are drinking?: 5 or 6 3. How often do you have six or more drinks on one occasion?: Never Total Score: 5 VANESSA-7 AMB Questionnaire VANESSA-7 Date VANESSA - 7 assessed: 06/30/24 Source: Developed by Drs. Kareem Nguyen, Wen Torres, Lucas You and colleagues, with an educational ryan from [employer]. Review of Systems Const Denies poor appetite and Denies weakness Eyes Denies no additional complaints ENT Reports Normal hearing present, Denies dizziness, Denies nasal congestion, Denies tinnitus and Denies sore throat Card Denies chest pain, Denies syncope, Denies rapid heart rate and Denies dyspnea Resp Denies cough and Denies dyspnea GI Denies change in stool character, Reports constipation, Denies diarrhea, Denies nausea and Denies vomiting Denies dysuria and Denies urinary frequency Neuro Reports Normal hearing present, Denies confusion, Denies dizziness, Denies syncope and Denies weakness Psych Denies confusion Physical exam (Primary Care) Vital Signs: Last Vital Signs Pulse 89 11/01/24 14:19 BP 132/82 11/01/24 14:19 Pulse Ox 98 11/01/24 14:19 Oxygen Delivery Method Room Air 11/01/24 14:19 BMI result Body Mass Index 28.4 Tobacco/Smoking Status: Tobacco use Status Tobacco use date assessed 07/28/24 11/01/24 14:22 Patient Tobacco Use Status Current everyday Tobacco 11/01/24 14:22 Tobacco use type Cigarette 11/01/24 14:22 e-Cigarette/Vaping Use Never Used 11/01/24 14:22 PHQ-9: PHQ-9 Score PHQ-9: Total score 0 11/01/24 14:22 Depression Screening Interpretation: Negative Thrive Assessment: Date of Thrive Assessment Date Thrive assessed 06/30/24 11/01/24 14:22 Currently or been in a relationship where the following occur: No concerns reported Const General: No confusion Orientation/consciousness: No confusion HENMT Head: Yes normocephalic Ears: external ears normal and TM's normal bilaterally Face and sinus: Yes normal facial exam Mouth: moist mucous membranes Throat: Yes tonsils normal Eyes Conjunctivae: conjunctivae normal Pupils: Equal, round and reactive pupils present and Pupil accommodation reflex normal Direct Ophthalmoscopy: normal light reflex Neck Neck: No lymphadenopathy Thyroid: Thyroid normal Chest Chest palpation & inspection: normal inspection of the chest Resp Effort & Inspection: normal respiratory effort and no audible wheezes Auscultation: clear to auscultation bilaterally, no crackles, no wheezes and lung sounds not diminished Cardio Rate: regular rate Rhythm: regular rhythm Peripheral pulses: radial pulses present and dorsalis pedis present GI Other: declined Palpation (GI): no masses Auscultation: normal bowel sounds and normoactive bowel sounds Rectal Exam - Male: Yes deferred Other: Normal Skin General skin exam: no rashes or lesions noted Rashes: no rashes Neuro General: No confusion Cranial nerves: Yes Equal, round and reactive pupils present and Yes Normal hearing present Cognition (Neuro): normal cognition Gait exam (Neuro): Normal gait present Motor exam (neuro): 5/5 motor strength present throughout Deep tendon reflexes (DTR's): Right brachioradialis reflex intensity grade: 2+, Left brachioradialis reflex intensity grade: 2+, Right patellar reflex intensity grade: 2+ and Left patellar reflex intensity grade: 2+ Extrem General: No edema Coding Level of Care Code Est Pt Prev Care 40-64y(63654) Diagnoses Annual physical exam Z00.00 Tobacco abuse Z72.0 Hepatic steatosis K76.0 Impaired glucose tolerance R73.02 Coronary artery disease involving [place] coronary artery of [place] heart without angina pectoris I25.10 Coronary Disease-Associated Artery/Lesion type: [place] artery [place] vs. transplanted heart: [place] heart Associated angina: without angina HTN (hypertension), benign I10 Overweight (BMI 25.0-29.9) E66.3 Gastroesophageal reflux disease without esophagitis K21.9 Esophagitis presence: without esophagitis Mixed hyperlipidemia E78.2 Hyperlipidemia type: mixed hyperlipidemia Generalized anxiety disorder F41.1 Assessment & Plan Assessment & Plan (1) Annual physical exam: Code(s): Z00.00 - Encounter for general adult medical examination without abnormal f indings Category: Medical Plan: Patient is advised to eat healthy, keep well hydrated, keep active and have adequate sleep. (2) Tobacco abuse: Code(s): Z72.0 - Tobacco use Category: Medical Plan: Patient is strongly advised to stop smoking! (3) Hepatic steatosis: Comment: May 2024 Code(s): K76.0 - Fatty (change of) liver, not elsewhere classified Category: Medical Plan: Low-fat diet and exercise (4) Impaired glucose tolerance: Code(s): R73.02 - Impaired glucose tolerance (oral) Category: Medical Plan: Decrease the amount of carbohydrate intake, pasta, bread, rice and potatoes are all sugar and that is aside from all the sweet stuff, remember that fruits are good but they are Sweet also. (5) CAD (coronary artery disease): Comment: 2008 Dr. Gerardo stent placement LAD Code(s): I25.10 - Atherosclerotic heart disease of [place] coronary artery without angina pectoris Category: Medical Qualifiers: Coronary Disease-Associated Artery/Lesion type: [place] artery [place] vs. transplanted heart: [place] heart Associated angina: without angina Qualified Code(s): I25.10 - Atherosclerotic heart disease of [place] coronary artery without angina pectoris Plan: Control the cholesterol, weight, blood pressure on aspirin 81 mg once a day (6) HTN (hypertension), benign: Code(s): I10 - Essential (primary) hypertension Category: Medical Plan: Continue with blood pressure medication. Decrease salt intake and exercise patient is on nebivolol 2.5 mg once a day (7) Overweight (BMI 25.0-29.9): Code(s): E66.3 - Overweight Category: Medical Plan: Diet and exercise (8) GERD (gastroesophageal reflux disease): Code(s): K21.9 - Gastro-esophageal reflux disease without esophagitis Category: Medical Qualifiers: Esophagitis presence: without esophagitis Qualified Code(s): K21.9 - Gastro-esophageal reflux disease without esophagitis Plan: Avoid the foods that causes that usually spicy foods, tomato products, juices, coffee, soda and foods that your sensitive to. After eating do not lie down, allow 3-4 hours before in lie down. And keep the head of bed above 30 degrees to avoid the acid from going up. (9) Hyperlipidemia: Code(s): E78.5 - Hyperlipidemia, unspecified Category: Medical Qualifiers: Hyperlipidemia type: mixed hyperlipidemia Qualified Code(s): E78.2 - Mixed hyperlipidemia Plan: Avoid fried foods, chicken skin, eggs, butter margarine, pastries and meat. Be it pork or beef they have a lot of cholesterol LDL goal of less than 70 and triglyceride of less than 150 on rosuvastatin 40 mg once a day fenofibrate 145 mg once a day and Zetia at 10 mg once a (10) Generalized anxiety disorder: Code(s): F41.1 - Generalized anxiety disorder Category: Medical Plan: Continue with medication as needed Plan History of Present Illness The patient is a 54-year-old male presenting with a physical examination and follow-up on chronic conditions. The patient has a history of coronary artery disease, hypertension, and hypercholesterolemia. He is currently on aspirin 81 mg daily for coronary artery disease and takes rosuvastatin, fenofibrate, and Zetia for cholesterol management. His blood pressure is managed with nebivolol 2.5 mg daily. The patient also has gastroesophageal reflux disease (GERD) and is taking famotidine for management. He reports no new symptoms related to GERD. The patient has impaired glucose tolerance with a hemoglobin A1c of 6.0 noted in July 2024. He is advised to follow a low-fat diet and exercise regularly to manage his glucose levels. The patient has generalized anxiety disorder and uses alprazolam as needed. He reports feeling good and has no new symptoms related to anxiety. The patient has hepatic steatosis, confirmed by ultrasound in May. Liver function tests were elevated, and he is advised to maintain a healthy diet to manage this condition. The patient is a smoker, currently smoking a pack every three days, and is strongly advised to quit smoking. He has a family history of heart disease, with both parents having had heart attacks. Preventative care measures include being up to date with colonoscopy and vaccinations, including shingles and pneumonia vaccines. Health Maintenance - Smoking cessation strongly advised - Low-fat diet and regular exercise recommended - Up to date with colonoscopy and vaccinations, including shingles and pneumonia vaccines Social History - Smoking: Currently smokes a pack every three days, advised to quit - Alcohol: Consumes very little alcohol, advised to be cautious - Living situation: Lives alone, manages own cooking and diet Review of Systems - Cardiovascular: Denies chest pain, palpitations, or syncope - Respiratory: Denies dyspnea or cough - Gastrointestinal: Denies nausea, vomiting, or abdominal pain; reports normal bowel movements - Neurological: Denies dizziness or headaches; reports hearing difficulty in one ear - Genitourinary: Reports waking once at night to urinate Physical Exam General: Cooperative, overweight, healthy appearing, comfortable, no acute distress and well developed Orientation: Patient oriented x3 Limitations: No limitations Head: Normal to inspection Ears: Hearing impaired on one side Nose: Normal external nose present Face and sinus: Normal facial exam Eyes: Appearance normal, both eyes and all related structures Neck: Normal visual inspection and Yes full ROM Respiratory: Normal respiratory effort and able to speak in complete sentences. Clear to auscultation bilaterally Cardiovascular: Regular rate and rhythm. Normal S1 and S2 GI: Normal to inspection. Soft to palpation and nontender Skin: No rashes or lesions noted Neuro: Patient oriented x3 Extremities: Normal to inspection Results - Labs: Hemoglobin A1c 6.0, elevated liver function tests, low vitamin B12 - Imaging: Ultrasound in May showed hepatic steatosis Plan Patient was informed and verbally consented to the use of an ambient scribe for clinic note documentation during this visit. 1. Coronary Artery Disease The patient is advised to continue aspirin 81 mg daily for coronary artery disease management. 2. Hypertension Blood pressure is managed with nebivolol 2.5 mg daily. 3. Hypercholesterolemia The patient is on rosuvastatin 40 mg, fenofibrate 145 mg, and Zetia 10 mg daily to manage cholesterol levels. 4. Gastroesophageal Reflux Disease (Gerd) The patient is advised to continue famotidine for GERD management. 5. Impaired Glucose Tolerance The patient is advised to follow a low-fat diet and exercise regularly to manage glucose levels. 6. Generalized Anxiety Disorder The patient uses alprazolam as needed for anxiety management. 7. Hepatic Steatosis The patient is advised to maintain a healthy diet to manage hepatic steatosis. 8. Smoking Cessation The patient is strongly advised to quit smoking. Discussion Notes During the visit, I discussed the importance of smoking cessation and advised the patient to quit smoking to improve overall health and reduce cardiovascular risk. We reviewed the patient's current medication regimen for coronary artery disease, hypertension, and hypercholesterolemia, emphasizing adherence to prescribed therapies. I recommended a low-fat diet and regular exercise to manage impaired glucose tolerance and hepatic steatosis. The patient was informed about the importance of maintaining up-to-date vaccinations and screenings, including colonoscopy and shingles vaccine. Patient Instructions - Quit smoking to improve health and reduce cardiovascular risk. - Continue taking prescribed medications for coronary artery disease, hypertension, and hypercholesterolemia. - Follow a low-fat diet and exercise regularly to manage glucose levels and liver health. - Stay up to date with vaccinations and screenings, including colonoscopy and shingles vaccine. Orders: Orders Hemoglobin A1c 6 Months R73.02 - Impaired glucose tolerance (oral) Complete Blood Count Auto Diff 6 Months R73.02 - Impaired glucose tolerance (oral) Thyroid Stimulating Hormone 6 Months R73.02 - Impaired glucose tolerance (oral) Free T4 (Free Thyroxine) 6 Months R73.02 - Impaired glucose tolerance (oral) Vitamin B12 and Folate 6 Months R73.02 - Impaired glucose tolerance (oral) Comprehensive Met. Panel 6 Months R73.02 - Impaired glucose tolerance (oral) Lipid Panel 6 Months E78.00 - Pure hypercholesterolemia, unspecified, R73.02 - Impaired glucose tolerance (oral) Prostate Specific Antigen Scr 6 Months R73.02 - Impaired glucose tolerance (oral)
== END 2024-11-01 15:01 | disposition home or self-care (01) ==
LOC: HO.HMCH 14:15
PROVIDERS: PCP Internal Medicine; Visit Provider Internal Medicine
DX: Z00.00 Encounter for general adult medical examination without abnormal findings (principal); Z72.0 Tobacco use; K76.0 Fatty (change of) liver, not elsewhere classified; R73.02 Impaired glucose tolerance (oral); I25.10 Atherosclerotic heart disease of native coronary artery without angina pectoris; I10 Essential (primary) hypertension; E66.3 Overweight; K21.9 Gastro-esophageal reflux disease without esophagitis; E78.2 Mixed hyperlipidemia; F41.1 Generalized anxiety disorder